=== PATIENT | male | born 1940 | race Caucasian/White ===

== ENCOUNTER 2017-10-13 10:52 | Inpatient (IN) | payer MEDICARE, OTHER ==
[~2017-10-13] VITALS: Ht 177.8 cm; Wt 84.2 kg
[2017-10-13] MEDS ORDERED: normal saline 1000ML IV soln IV ONE (11:00)
[2017-10-13] MEDS ORDERED: metroNIDAZOLE-Flagyl 500mg/NS 100 ML IV STA (11:15)
[2017-10-13] MEDS ORDERED: piperacillin/tazo 3.375gm/50ml 50 ML IV ONE (11:15)
[2017-10-13 11:36] LABS: BASOPHILS % (AUTO) 0.1 % (0-1); EOSINOPHILS # (AUTO) 0.1 X10'3 (0-0.9); EOSINOPHILS % (AUTO) 0.8 % (0-6); HEMATOCRIT 41.2 % (42.0-52.0); LYMPHOCYTES # (AUTO) 1.6 X10'3 (1.1-4.8); LYMPHOCYTES % (AUTO) 8.5 % (21-51); MEAN CORPUSCULAR HEMOGLOBIN 28.2 PG (27.0-31.0); MEAN CORPUSCULAR HGB CONC 33.9 % (33.0-36.5); MEAN CORPUSCULAR VOLUME 83.1 FL (78-98); MEAN PLATELET VOLUME 7.4 FL (7.4-10.4); MONOCYTES # (AUTO) 1.2 X10'3 (0-0.9); MONOCYTES % (AUTO) 6.6 % (2-12); NEUTROPHILS # (AUTO) 15.3 X10'3 (1.8-7.7); PLATELET COUNT 402 X10'3 (140-440); RED BLOOD COUNT 4.96 X10'6 (4.70-6.10); WHITE BLOOD COUNT 18.2 X10'3 (4.5-11.0)
[2017-10-13 11:44] LABS: PROTHROMBIN TIME 10.8 SECONDS (9.0-12.0)
[2017-10-13 12:01] LABS: ALANINE AMINOTRANSFERASE 68 U/L (12-78); ALBUMIN 2.7 G/DL (3.4-5.0); ALBUMIN/GLOBULIN RATIO 0.6 (1.1-1.5); ALKALINE PHOSPHATASE 109 IU/L (46-116); ANION GAP 14 (8-16); ASPARTATE AMINO TRANSFERASE 34 U/L (10-37); BILIRUBIN,TOTAL 0.5 MG/DL (0.1-1.0); BLOOD UREA NITROGEN 36 MG/DL (7-18); CALCIUM 8.9 MG/DL (8.5-10.1); CHLORIDE 100 MMOL/L (99-107); CREATININE 2.12 MG/DL (0.60-1.10); GLUCOSE 129 MG/DL (70-104); POTASSIUM 3.8 MMOL/L (3.5-5.1); SODIUM 137 MMOL/L (135-145); TOTAL CARBON DIOXIDE 22.7 MMOL/L (24-32); TOTAL PROTEIN 7.6 G/DL (6.4-8.2); eGFR 30 ML/MIN
[2017-10-13] MEDS ORDERED: acetaminophen 325mg tablet PO PRN (13:05)
[2017-10-13] MEDS ORDERED: magnesium hydroxide 30ml (MOM) UD suspension PO PRN (13:05)
[2017-10-13 13:33] LABS: CLARITY,URINE TURBID (Clear); COLOR,URINE DARK YELLOW (Yellow); GLUCOSE, URINE NEGATIVE (Neg); KETONES,URINE TRACE mg/dl (Neg); LEUKOCYTE ESTERASE ,URINE MODERATE (Neg); NITRITES, URINE POSITIVE (Neg); OCCULT BLOOD,URINE LARGE (Neg); PROTEIN,URINE 100 mg/dl (Neg); UA COLLECTION TYPE CLN CATCH MIDSTREAM
[2017-10-13 13:36] LABS: WBC,URINE TNTC /HPF (0-4)
[2017-10-13 13:38] LABS: BACTERIA,URINE 4+ /HPF (Neg)
[2017-10-13 13:39] LABS: SQUAMOUS EPITHELIAL CELL,UR NONE SEEN /LPF (FEW)
[2017-10-13] MEDS: sodium chloride 0.45% 1,000 ML IV SCH ×2 (14:52→23:26)
[2017-10-13] MEDS ORDERED: metroNIDAZOLE-Flagyl 500mg/NS 100 ML IV SCH (16:00)
[2017-10-13] MEDS ORDERED: piperacillin/tazo 3.375gm/50ml 50 ML IV SCH ×3 (16:00→16:29)
[2017-10-13] MEDS: metroNIDAZOLE-Flagyl 500mg/NS 100 ML IV SCH (19:04)
[2017-10-13] MEDS: piperacillin/tazo 3.375gm/50ml 50 ML IV SCH (20:44)
[2017-10-13 23:10] VITALS: BP 96/61
[2017-10-14] VITALS (10 sets, daily range): BP systolic 87–132; BP diastolic 49–83
[2017-10-14] MEDS: metroNIDAZOLE-Flagyl 500mg/NS 100 ML IV SCH ×3 (03:33→19:33)
[2017-10-14] MEDS: piperacillin/tazo 3.375gm/50ml 50 ML IV SCH ×3 (04:38→20:46)
[2017-10-14 05:11] LABS: BASOPHILS # (AUTO) 0.1 X10'3 (0-0.2); BASOPHILS % (AUTO) 0.3 % (0-1); EOSINOPHILS # (AUTO) 0.5 X10'3 (0-0.9); EOSINOPHILS % (AUTO) 2.9 % (0-6); HEMATOCRIT 35.8 % (42.0-52.0); HEMOGLOBIN 12.1 g/dl (14.0-17.9); LYMPHOCYTES # (AUTO) 1.5 X10'3 (1.1-4.8); LYMPHOCYTES % (AUTO) 9.6 % (21-51); MEAN CORPUSCULAR HEMOGLOBIN 28.3 PG (27.0-31.0); MEAN CORPUSCULAR HGB CONC 33.7 % (33.0-36.5); MEAN CORPUSCULAR VOLUME 83.9 FL (78-98); MEAN PLATELET VOLUME 7.3 FL (7.4-10.4); MONOCYTES # (AUTO) 1.2 X10'3 (0-0.9); MONOCYTES % (AUTO) 7.4 % (2-12); NEUTROPHILS # (AUTO) 12.5 X10'3 (1.8-7.7); NEUTROPHILS % (AUTO) 79.8 % (42-75); PLATELET COUNT 385 X10'3 (140-440); RED BLOOD COUNT 4.27 X10'6 (4.70-6.10); RED CELL DISTRIBUTION WIDTH 14.6 % (11.5-14.5); WHITE BLOOD COUNT 15.6 X10'3 (4.5-11.0)
[2017-10-14 05:26] LABS: ANION GAP 13 (8-16); BLOOD UREA NITROGEN 26 MG/DL (7-18); BUN/CREATININE RATIO 18.8 (5.4-32.0); CALCIUM 8.1 MG/DL (8.5-10.1); CHLORIDE 103 MMOL/L (99-107); CREATININE 1.38 MG/DL (0.60-1.10); GLUCOSE 106 MG/DL (70-104); POTASSIUM 4.1 MMOL/L (3.5-5.1); SODIUM 136 MMOL/L (135-145); eGFR 50 ML/MIN
[2017-10-14] MEDS ORDERED: enoxaparin 40mg/0.4ml syringe SUBCUT SCH (08:00)
[2017-10-14] MEDS ORDERED: regadenoson 0.4mg/5ml syringe IV ONE (09:25)
[2017-10-14] MEDS ORDERED: DIPYRIDAMOLE IV ONE (10:00)
[2017-10-14] MEDS ORDERED: WATER IV ONE (10:00)
[2017-10-14] MEDS ORDERED: metoprolol tartrate 1mg/ml inj IV PRN (10:00)
[2017-10-14] MEDS ORDERED: DEXTROSE 5% IV ONE (10:00)
[2017-10-14] MEDS ORDERED: aminophylline 250mg/10ml inj. IV PRN (10:00)
[2017-10-14] MEDS: sodium chloride 0.45% 1,000 ML IV SCH ×2 (10:52→19:01)
[2017-10-15] VITALS (13 sets, daily range): BP systolic 81–140; BP diastolic 52–78
[2017-10-15] MEDS: sodium chloride 0.45% 1,000 ML IV SCH ×3 (00:32→19:57)
[2017-10-15] MEDS: metroNIDAZOLE-Flagyl 500mg/NS 100 ML IV SCH ×3 (03:07→19:57)
[2017-10-15] MEDS: piperacillin/tazo 3.375gm/50ml 50 ML IV SCH ×3 (04:15→20:12)
[2017-10-15 05:23] LABS: BASOPHILS % (AUTO) 0.2 % (0-1); EOSINOPHILS # (AUTO) 0.3 X10'3 (0-0.9); EOSINOPHILS % (AUTO) 2.9 % (0-6); HEMATOCRIT 36.6 % (42.0-52.0); HEMOGLOBIN 12.3 g/dl (14.0-17.9); LYMPHOCYTES # (AUTO) 1.6 X10'3 (1.1-4.8); LYMPHOCYTES % (AUTO) 16.3 % (21-51); MEAN CORPUSCULAR HEMOGLOBIN 28.3 PG (27.0-31.0); MEAN CORPUSCULAR HGB CONC 33.6 % (33.0-36.5); MEAN CORPUSCULAR VOLUME 84.2 FL (78-98); MEAN PLATELET VOLUME 7.2 FL (7.4-10.4); MONOCYTES # (AUTO) 0.9 X10'3 (0-0.9); MONOCYTES % (AUTO) 8.8 % (2-12); NEUTROPHILS # (AUTO) 7.1 X10'3 (1.8-7.7); NEUTROPHILS % (AUTO) 71.8 % (42-75); PLATELET COUNT 397 X10'3 (140-440); RED BLOOD COUNT 4.35 X10'6 (4.70-6.10); RED CELL DISTRIBUTION WIDTH 14.8 % (11.5-14.5); WHITE BLOOD COUNT 9.9 X10'3 (4.5-11.0)
[2017-10-15 06:05] LABS: ANION GAP 11 (8-16); BLOOD UREA NITROGEN 20 MG/DL (7-18); BUN/CREATININE RATIO 13.7 (5.4-32.0); CALCIUM 8.2 MG/DL (8.5-10.1); CHLORIDE 105 MMOL/L (99-107); CREATININE 1.46 MG/DL (0.60-1.10); GLUCOSE 112 MG/DL (70-104); POTASSIUM 4.1 MMOL/L (3.5-5.1); SODIUM 139 MMOL/L (135-145); TOTAL CARBON DIOXIDE 23.2 MMOL/L (24-32); eGFR 47 ML/MIN
[2017-10-15] MEDS: enoxaparin 40mg/0.4ml syringe SUBCUT SCH (08:00)
[2017-10-15] MEDS ORDERED: BUPIVAcaine/PF 2.5 mg/ml (0.25%) 30ml vial ONE (12:04)
[2017-10-15] MEDS ORDERED: iohexol 300 MG/1 ML 50ml polymer ONE (12:04)
[2017-10-15] MEDS ORDERED: LIDOcaine 2% (20mg/ml) 5ml vial ONE (12:08)
[2017-10-15] MEDS ORDERED: propofol inj 20 ML IV ONE (12:08)
[2017-10-15] MEDS ORDERED: rocuronium 10mg/ml inj IV ONE ×2 (12:10→13:36)
[2017-10-15] MEDS ORDERED: fentaNYL /PF 50mcg/ml 5ml ampule ONE (12:11)
[2017-10-15] MEDS ORDERED: midazolam 2 mg/2 ml injection ONE (12:11)
[2017-10-15] MEDS ORDERED: sevoflurane 250ml liquid IH ONE (12:59)
[2017-10-15] MEDS ORDERED: ringers solution, lacted 1,000 ML IV SCH (14:09)
[2017-10-15] MEDS ORDERED: fentaNYL/PF 50MCG/1 ML 2ML syringe IV PRN ×2 (14:10)
[2017-10-15] MEDS ORDERED: ondansetron/PF 4mg/2ml inj IV PRN (14:10)
[2017-10-15] MEDS ORDERED: HYDROmorphone inj. 0.5 MG/0.5 ML DISP.SYRIN IV PRN (14:10)
[2017-10-15] MEDS ORDERED: neostigmine methylsulfate 1 MG/ML 10ml vial ONE (15:16)
[2017-10-15] MEDS ORDERED: glycopyrrolate 0.2mg/ml inj ONE (15:16)
[2017-10-15] MEDS ORDERED: ondansetron/PF 4mg/2ml inj ONE (15:27)
[2017-10-15] MEDS ORDERED: fentaNYL/PF 50MCG/1 ML 2ML syringe ONE ×2 (15:35→15:39)
[2017-10-15] MEDS ORDERED: metoprolol tartrate 1mg/ml inj IV ONE (15:40)
[2017-10-15] MEDS ORDERED: albuterol 2.5 MG/3 ML nebule NEB ONE (16:40)
[2017-10-15] MEDS ORDERED: CADD PCA waste documentation MC PRN (16:55)
[2017-10-15] MEDS ORDERED: naloxone 0.4 mg/ml inj IV PRN (16:55)
[2017-10-15] MEDS: HYDROmorphone/NS 1 mg/ml CADD 50 ML IV SCH ×3 (17:07→23:00)
[2017-10-15 18:32] LABS: BASOPHILS % (AUTO) 0.1 % (0-1); EOSINOPHILS % (AUTO) 0.1 % (0-6); HEMATOCRIT 34.6 % (42.0-52.0); HEMOGLOBIN 11.4 g/dl (14.0-17.9); LYMPHOCYTES # (AUTO) 0.7 X10'3 (1.1-4.8); LYMPHOCYTES % (AUTO) 9.2 % (21-51); MEAN CORPUSCULAR HGB CONC 33.1 % (33.0-36.5); MEAN CORPUSCULAR VOLUME 84.5 FL (78-98); MONOCYTES # (AUTO) 0.2 X10'3 (0-0.9); MONOCYTES % (AUTO) 2.3 % (2-12); NEUTROPHILS # (AUTO) 6.8 X10'3 (1.8-7.7); NEUTROPHILS % (AUTO) 88.3 % (42-75); PLATELET COUNT 384 X10'3 (140-440); RED BLOOD COUNT 4.09 X10'6 (4.70-6.10); RED CELL DISTRIBUTION WIDTH 14.7 % (11.5-14.5); WHITE BLOOD COUNT 7.8 X10'3 (4.5-11.0)
[2017-10-15] MEDS ORDERED: DOXA4TAB3 PO (18:53)
[2017-10-15] MEDS ORDERED: PANT-47 PO (18:53)
[2017-10-15] MEDS ORDERED: MELO-102 PO (18:53)
[2017-10-15] MEDS ORDERED: CLOP75TA35 PO (18:55)
[2017-10-15 22:00] LABS: ALANINE AMINOTRANSFERASE 29 U/L (12-78); ALBUMIN 1.9 G/DL (3.4-5.0); ALBUMIN/GLOBULIN RATIO 0.5 (1.1-1.5); ALKALINE PHOSPHATASE 63 IU/L (46-116); ANION GAP 10 (8-16); ASPARTATE AMINO TRANSFERASE 17 U/L (10-37); BILIRUBIN,TOTAL 0.6 MG/DL (0.1-1.0); BLOOD UREA NITROGEN 19 MG/DL (7-18); BUN/CREATININE RATIO 11.9 (5.4-32.0); CALCIUM 7.7 MG/DL (8.5-10.1); CHLORIDE 105 MMOL/L (99-107); CREATININE 1.59 MG/DL (0.60-1.10); GLUCOSE 129 MG/DL (70-104); POTASSIUM 4.2 MMOL/L (3.5-5.1); SODIUM 140 MMOL/L (135-145); TOTAL CARBON DIOXIDE 24.9 MMOL/L (24-32); TOTAL PROTEIN 5.6 G/DL (6.4-8.2); eGFR 42 ML/MIN
[2017-10-15] MEDS ORDERED: albumin (Human) 5% 250 ML IV solution IV STA (22:33)
[2017-10-16] VITALS (24 sets, daily range): BP systolic 77–104; BP diastolic 52–65
[2017-10-16] MEDS: HYDROmorphone/NS 1 mg/ml CADD 50 ML IV SCH ×11 (01:00→23:00)
[2017-10-16] MEDS: metroNIDAZOLE-Flagyl 500mg/NS 100 ML IV SCH (03:00)
[2017-10-16] MEDS: piperacillin/tazo 3.375gm/50ml 50 ML IV SCH (03:53)
[2017-10-16 05:09] LABS: BASOPHILS % (AUTO) 0.1 % (0-1); EOSINOPHILS # (AUTO) 0.1 X10'3 (0-0.9); EOSINOPHILS % (AUTO) 1.1 % (0-6); HEMATOCRIT 31.6 % (42.0-52.0); HEMOGLOBIN 10.6 g/dl (14.0-17.9); LYMPHOCYTES # (AUTO) 0.9 X10'3 (1.1-4.8); LYMPHOCYTES % (AUTO) 7.1 % (21-51); MEAN CORPUSCULAR HEMOGLOBIN 28.1 PG (27.0-31.0); MEAN CORPUSCULAR HGB CONC 33.6 % (33.0-36.5); MEAN CORPUSCULAR VOLUME 83.5 FL (78-98); MEAN PLATELET VOLUME 6.9 FL (7.4-10.4); MONOCYTES # (AUTO) 0.6 X10'3 (0-0.9); MONOCYTES % (AUTO) 5.3 % (2-12); NEUTROPHILS # (AUTO) 10.4 X10'3 (1.8-7.7); NEUTROPHILS % (AUTO) 86.4 % (42-75); PLATELET COUNT 369 X10'3 (140-440); RED BLOOD COUNT 3.78 X10'6 (4.70-6.10)
[2017-10-16 05:23] LABS: ALBUMIN 2.2 G/DL (3.4-5.0); ANION GAP 11 (8-16); BLOOD UREA NITROGEN 21 MG/DL (7-18); BUN/CREATININE RATIO 11.1 (5.4-32.0); CALCIUM 7.6 MG/DL (8.5-10.1); CHLORIDE 104 MMOL/L (99-107); GLUCOSE 127 MG/DL (70-104); POTASSIUM 4.4 MMOL/L (3.5-5.1); SODIUM 138 MMOL/L (135-145); eGFR 34 ML/MIN
[2017-10-16] MEDS: sodium chloride 0.45% 1,000 ML IV SCH ×2 (05:33→23:33)
[2017-10-16] MEDS: enoxaparin 40mg/0.4ml syringe SUBCUT SCH (08:30)
[2017-10-16] MEDS ORDERED: albumin (human) 25% 100 ML IV solution IV SCH (13:00)
[2017-10-16] MEDS: meropenem inj 500 MG in normal saline 100ml IV soln 100 ML IV SCH ×2 (16:23→23:33)
[2017-10-16] MEDS: mag hydrox/Alum hydrox/simeth 30ml oral suspension PO PRN (16:28)
[2017-10-17] VITALS (22 sets, daily range): BP systolic 92–120; BP diastolic 56–83
[2017-10-17] MEDS: HYDROmorphone/NS 1 mg/ml CADD 50 ML IV SCH ×12 (01:00→23:00)
[2017-10-17 03:35] LABS: BASOPHILS # (AUTO) 0.1 X10'3 (0-0.2); BASOPHILS % (AUTO) 0.8 % (0-1); EOSINOPHILS # (AUTO) 0.1 X10'3 (0-0.9); EOSINOPHILS % (AUTO) 0.8 % (0-6); HEMATOCRIT 30.9 % (42.0-52.0); HEMOGLOBIN 10.5 g/dl (14.0-17.9); LYMPHOCYTES # (AUTO) 0.9 X10'3 (1.1-4.8); LYMPHOCYTES % (AUTO) 5.9 % (21-51); MEAN CORPUSCULAR HEMOGLOBIN 28.3 PG (27.0-31.0); MEAN CORPUSCULAR HGB CONC 33.9 % (33.0-36.5); MEAN CORPUSCULAR VOLUME 83.3 FL (78-98); MEAN PLATELET VOLUME 6.9 FL (7.4-10.4); MONOCYTES # (AUTO) 0.8 X10'3 (0-0.9); MONOCYTES % (AUTO) 5.1 % (2-12); NEUTROPHILS # (AUTO) 13.5 X10'3 (1.8-7.7); NEUTROPHILS % (AUTO) 87.4 % (42-75); PLATELET COUNT 382 X10'3 (140-440); RED BLOOD COUNT 3.71 X10'6 (4.70-6.10); RED CELL DISTRIBUTION WIDTH 14.8 % (11.5-14.5); WHITE BLOOD COUNT 15.4 X10'3 (4.5-11.0)
[2017-10-17 03:41] LABS: ANION GAP 12 (8-16); BLOOD UREA NITROGEN 23 MG/DL (7-18); BUN/CREATININE RATIO 12.3 (5.4-32.0); CALCIUM 7.8 MG/DL (8.5-10.1); CHLORIDE 101 MMOL/L (99-107); CREATININE 1.87 MG/DL (0.60-1.10); GLUCOSE 125 MG/DL (70-104); POTASSIUM 4.1 MMOL/L (3.5-5.1); SODIUM 135 MMOL/L (135-145); TOTAL CARBON DIOXIDE 22.1 MMOL/L (24-32); eGFR 35 ML/MIN
[2017-10-17] MEDS: ondansetron/PF 4mg/2ml inj IV PRN (07:48)
[2017-10-17] MEDS: enoxaparin 40mg/0.4ml syringe SUBCUT SCH (07:48)
[2017-10-17] MEDS: pantoprazole 40mg Tablet.DR PO SCH (07:48)
[2017-10-17] MEDS: meropenem inj 500 MG in normal saline 100ml IV soln 100 ML IV SCH (08:58)
[2017-10-17] MEDS: sodium chloride 0.45% 1,000 ML IV SCH ×3 (08:59→21:32)
[2017-10-17] MEDS: MEROPENEM IV SCH (17:10)
[2017-10-17] MEDS: DEXTROSE 5% IV SCH (17:10)
[2017-10-17] MEDS: WATER IV SCH (17:10)
[2017-10-18] VITALS (24 sets, daily range): BP systolic 83–123; BP diastolic 53–96
[2017-10-18] MEDS: DEXTROSE 5% IV SCH ×4 (00:13→23:29)
[2017-10-18] MEDS: MEROPENEM IV SCH ×4 (00:13→23:29)
[2017-10-18] MEDS: WATER IV SCH ×4 (00:13→23:29)
[2017-10-18] MEDS: HYDROmorphone/NS 1 mg/ml CADD 50 ML IV SCH ×12 (01:00→23:00)
[2017-10-18] MEDS: mag hydrox/Alum hydrox/simeth 30ml oral suspension PO PRN (02:25)
[2017-10-18 03:33] LABS: BASOPHILS # (AUTO) 0.1 X10'3 (0-0.2); BASOPHILS % (AUTO) 0.8 % (0-1); EOSINOPHILS # (AUTO) 0.3 X10'3 (0-0.9); EOSINOPHILS % (AUTO) 2.1 % (0-6); HEMATOCRIT 31.6 % (42.0-52.0); HEMOGLOBIN 10.6 g/dl (14.0-17.9); LYMPHOCYTES # (AUTO) 1.4 X10'3 (1.1-4.8); MEAN CORPUSCULAR HEMOGLOBIN 28.1 PG (27.0-31.0); MEAN CORPUSCULAR HGB CONC 33.5 % (33.0-36.5); MEAN CORPUSCULAR VOLUME 84.1 FL (78-98); MONOCYTES # (AUTO) 0.9 X10'3 (0-0.9); MONOCYTES % (AUTO) 5.8 % (2-12); NEUTROPHILS # (AUTO) 12.7 X10'3 (1.8-7.7); NEUTROPHILS % (AUTO) 82.3 % (42-75); PLATELET COUNT 396 X10'3 (140-440); RED BLOOD COUNT 3.76 X10'6 (4.70-6.10); RED CELL DISTRIBUTION WIDTH 14.8 % (11.5-14.5); WHITE BLOOD COUNT 15.4 X10'3 (4.5-11.0)
[2017-10-18 03:50] LABS: ALANINE AMINOTRANSFERASE 20 U/L (12-78); ALBUMIN 1.9 G/DL (3.4-5.0); ALBUMIN/GLOBULIN RATIO 0.5 (1.1-1.5); ALKALINE PHOSPHATASE 71 IU/L (46-116); ANION GAP 9 (8-16); ASPARTATE AMINO TRANSFERASE 17 U/L (10-37); BILIRUBIN,TOTAL 0.4 MG/DL (0.1-1.0); BLOOD UREA NITROGEN 23 MG/DL (7-18); BUN/CREATININE RATIO 15.6 (5.4-32.0); CHLORIDE 100 MMOL/L (99-107); CREATININE 1.47 MG/DL (0.60-1.10); GLUCOSE 127 MG/DL (70-104); MAGNESIUM 1.7 MG/DL (1.5-2.4); PHOSPHORUS 2.3 MG/DL (2.3-4.5); POTASSIUM 3.9 MMOL/L (3.5-5.1); SODIUM 133 MMOL/L (135-145); TOTAL CARBON DIOXIDE 24.3 MMOL/L (24-32); TOTAL PROTEIN 5.8 G/DL (6.4-8.2); eGFR 46 ML/MIN
[2017-10-18] MEDS: ondansetron/PF 4mg/2ml inj IV PRN (04:57)
[2017-10-18] MEDS: pantoprazole 40mg Tablet.DR PO SCH (08:35)
[2017-10-18] MEDS: enoxaparin 40mg/0.4ml syringe SUBCUT SCH (08:36)
[2017-10-18] MEDS: sodium chloride 0.45% 1,000 ML IV SCH (10:36)
[2017-10-18] MEDS ORDERED: fentaNYL/PF 50MCG/1 ML 2ML syringe ONE ×3 (11:07→12:46)
[2017-10-18] MEDS ORDERED: LIDOcaine 2% (20mg/ml) 5ml vial ONE (11:08)
[2017-10-18] MEDS ORDERED: propofol inj 20 ML IV ONE (11:08)
[2017-10-18] MEDS ORDERED: rocuronium 10mg/ml inj IV ONE (11:09)
[2017-10-18] MEDS ORDERED: sevoflurane 250ml liquid IH ONE (11:43)
[2017-10-18] MEDS ORDERED: BUPIVAcaine/PF 2.5 mg/ml (0.25%) 30ml vial ONE (12:04)
[2017-10-18] MEDS ORDERED: ceFAZolin 1000mg inj ONE ×2 (12:04→12:20)
[2017-10-18] MEDS ORDERED: neostigmine methylsulfate 1 MG/ML 10ml vial ONE (12:24)
[2017-10-18] MEDS ORDERED: glycopyrrolate 0.2mg/ml inj ONE (12:24)
[2017-10-18] MEDS ORDERED: ondansetron/PF 4mg/2ml inj ONE (12:24)
[2017-10-18] MEDS ORDERED: metoprolol tartrate 1mg/ml inj IV ONE (12:37)
[2017-10-18] MEDS: LACTOSE-FREE FOOD (BOOST BREEZE) 237ML PO SCH (13:00)
[2017-10-18] MEDS: normal saline 1000ml 1,000 ML IV SCH ×2 (14:33→21:39)
[2017-10-19] VITALS (24 sets, daily range): BP systolic 85–131; BP diastolic 60–79
[2017-10-19] MEDS: HYDROmorphone/NS 1 mg/ml CADD 50 ML IV SCH ×12 (01:00→23:00)
[2017-10-19 04:30] LABS: BASOPHILS # (AUTO) 0.1 X10'3 (0-0.2); BASOPHILS % (AUTO) 0.7 % (0-1); EOSINOPHILS # (AUTO) 0.1 X10'3 (0-0.9); EOSINOPHILS % (AUTO) 1.2 % (0-6); HEMATOCRIT 30.6 % (42.0-52.0); HEMOGLOBIN 10.6 g/dl (14.0-17.9); LYMPHOCYTES # (AUTO) 1.2 X10'3 (1.1-4.8); LYMPHOCYTES % (AUTO) 9.8 % (21-51); MEAN CORPUSCULAR HGB CONC 34.7 % (33.0-36.5); MEAN CORPUSCULAR VOLUME 83.8 FL (78-98); MEAN PLATELET VOLUME 7.2 FL (7.4-10.4); MONOCYTES # (AUTO) 0.8 X10'3 (0-0.9); MONOCYTES % (AUTO) 6.7 % (2-12); NEUTROPHILS # (AUTO) 10.1 X10'3 (1.8-7.7); NEUTROPHILS % (AUTO) 81.6 % (42-75); PLATELET COUNT 422 X10'3 (140-440); RED BLOOD COUNT 3.65 X10'6 (4.70-6.10); RED CELL DISTRIBUTION WIDTH 13.9 % (11.5-14.5); WHITE BLOOD COUNT 12.3 X10'3 (4.5-11.0)
[2017-10-19 04:35] LABS: ALANINE AMINOTRANSFERASE 20 U/L (12-78); ALBUMIN 1.6 G/DL (3.4-5.0); ALBUMIN/GLOBULIN RATIO 0.4 (1.1-1.5); ALKALINE PHOSPHATASE 55 IU/L (46-116); ANION GAP 8 (8-16); ASPARTATE AMINO TRANSFERASE 21 U/L (10-37); BILIRUBIN,TOTAL 0.6 MG/DL (0.1-1.0); BLOOD UREA NITROGEN 20 MG/DL (7-18); BUN/CREATININE RATIO 14.5 (5.4-32.0); CALCIUM 7.4 MG/DL (8.5-10.1); CHLORIDE 102 MMOL/L (99-107); CREATININE 1.38 MG/DL (0.60-1.10); GLUCOSE 127 MG/DL (70-104); MAGNESIUM 1.6 MG/DL (1.5-2.4); PHOSPHORUS 2.3 MG/DL (2.3-4.5); POTASSIUM 3.9 MMOL/L (3.5-5.1); SODIUM 135 MMOL/L (135-145); TOTAL CARBON DIOXIDE 24.9 MMOL/L (24-32); TOTAL PROTEIN 5.4 G/DL (6.4-8.2); eGFR 50 ML/MIN
[2017-10-19] MEDS: pantoprazole 40mg Tablet.DR PO SCH (07:43)
[2017-10-19] MEDS: enoxaparin 40mg/0.4ml syringe SUBCUT SCH (07:43)
[2017-10-19] MEDS: LACTOSE-FREE FOOD (BOOST BREEZE) 237ML PO SCH ×3 (08:00→18:00)
[2017-10-19] MEDS ORDERED: meropenem inj 500 MG in normal saline 100ml IV soln 100 ML IV SCH (08:00)
[2017-10-19] MEDS ORDERED: MEROPENEM IV SCH (16:00)
[2017-10-19] MEDS ORDERED: WATER IV SCH (16:00)
[2017-10-19] MEDS ORDERED: DEXTROSE 5% IV SCH (16:00)
[2017-10-19] MEDS: meropenem inj 1 GM in dextrose 5%-water 100 ML IV SCH (17:28)
[2017-10-19] MEDS: ondansetron/PF 4mg/2ml inj IV PRN (17:32)
[2017-10-19 19:12] LABS: COLOR,URINE Yellow (Yellow); GLUCOSE, URINE Negative (Neg); KETONES,URINE 15 mg/dl (Neg); LEUKOCYTE ESTERASE ,URINE Trace (Neg); NITRITES, URINE Negative (Neg); OCCULT BLOOD,URINE Small (Neg); PH,URINE 5.5 (4.8-8.0); PROTEIN,URINE 30 mg/dl (Neg)
[2017-10-19 19:24] LABS: CLARITY,URINE Slightly Cloudy (Clear); UA COLLECTION TYPE FOLEY CATH
[2017-10-19 19:31] LABS: WBC,URINE 0-4 /HPF (0-4)
[2017-10-19 19:32] LABS: BACTERIA,URINE NONE SEEN /HPF (Neg); RBC,URINE 0-2 /HPF (0-2); SQUAMOUS EPITHELIAL CELL,UR FEW /LPF (FEW)
[2017-10-19 19:35] LABS: YEAST MANY /HPF (NEGATIVE)
[2017-10-19] MEDS: normal saline 1000ml 1,000 ML IV SCH ×2 (19:36→20:20)
[2017-10-19] MEDS ORDERED: proCHLORperazine 10 MG/2 ml inj IV ONE (22:00)
[2017-10-20] VITALS (21 sets, daily range): BP systolic 95–138; BP diastolic 57–82
[2017-10-20] MEDS: meropenem inj 1 GM in dextrose 5%-water 100 ML IV SCH ×3 (00:48→16:16)
[2017-10-20] MEDS: ondansetron/PF 4mg/2ml inj IV PRN ×2 (00:59→19:50)
[2017-10-20] MEDS: HYDROmorphone/NS 1 mg/ml CADD 50 ML IV SCH ×12 (01:00→23:00)
[2017-10-20 05:26] LABS: BASOPHILS % (AUTO) 0.2 % (0-1); EOSINOPHILS # (AUTO) 0.4 X10'3 (0-0.9); EOSINOPHILS % (AUTO) 3.3 % (0-6); HEMATOCRIT 31.3 % (42.0-52.0); HEMOGLOBIN 10.5 g/dl (14.0-17.9); LYMPHOCYTES # (AUTO) 1.3 X10'3 (1.1-4.8); LYMPHOCYTES % (AUTO) 11.8 % (21-51); MEAN CORPUSCULAR HGB CONC 33.5 % (33.0-36.5); MEAN CORPUSCULAR VOLUME 83.7 FL (78-98); MEAN PLATELET VOLUME 6.9 FL (7.4-10.4); MONOCYTES % (AUTO) 8.6 % (2-12); NEUTROPHILS # (AUTO) 8.7 X10'3 (1.8-7.7); NEUTROPHILS % (AUTO) 76.1 % (42-75); PLATELET COUNT 437 X10'3 (140-440); RED BLOOD COUNT 3.73 X10'6 (4.70-6.10); RED CELL DISTRIBUTION WIDTH 14.6 % (11.5-14.5); WHITE BLOOD COUNT 11.4 X10'3 (4.5-11.0)
[2017-10-20 05:45] LABS: ALANINE AMINOTRANSFERASE 26 U/L (12-78); ALBUMIN 1.6 G/DL (3.4-5.0); ALBUMIN/GLOBULIN RATIO 0.4 (1.1-1.5); ALKALINE PHOSPHATASE 69 IU/L (46-116); ANION GAP 9 (8-16); ASPARTATE AMINO TRANSFERASE 30 U/L (10-37); BILIRUBIN,TOTAL 0.6 MG/DL (0.1-1.0); BLOOD UREA NITROGEN 20 MG/DL (7-18); BUN/CREATININE RATIO 16.7 (5.4-32.0); CALCIUM 7.8 MG/DL (8.5-10.1); CHLORIDE 103 MMOL/L (99-107); GLUCOSE 128 MG/DL (70-104); MAGNESIUM 1.9 MG/DL (1.5-2.4); PHOSPHORUS 2.4 MG/DL (2.3-4.5); SODIUM 138 MMOL/L (135-145); TOTAL CARBON DIOXIDE 25.9 MMOL/L (24-32); TOTAL PROTEIN 5.6 G/DL (6.4-8.2); eGFR 58 ML/MIN
[2017-10-20] MEDS: normal saline 1000ml 1,000 ML IV SCH ×2 (05:48→16:20)
[2017-10-20] MEDS: LACTOSE-FREE FOOD (BOOST BREEZE) 237ML PO SCH ×3 (08:00→19:00)
[2017-10-20] MEDS: enoxaparin 40mg/0.4ml syringe SUBCUT SCH (08:21)
[2017-10-20] MEDS: pantoprazole 40mg Tablet.DR PO SCH (08:21)
[2017-10-21] VITALS: BP 122/74
[2017-10-21] MEDS: meropenem inj 1 GM in dextrose 5%-water 100 ML IV SCH ×3 (00:26→16:25)
[2017-10-21 01:00] VITALS: BP 124/65
[2017-10-21] MEDS: normal saline 1000ml 1,000 ML IV SCH ×3 (02:20→22:57)
[2017-10-21] MEDS: HYDROmorphone/NS 1 mg/ml CADD 50 ML IV SCH (03:00)
[2017-10-21] MEDS: mag hydrox/Alum hydrox/simeth 30ml oral suspension PO PRN ×2 (03:01→10:32)
[2017-10-21] MEDS ORDERED: HYDROmorphone 1 mg/ml syringe IM ONE (03:05)
[2017-10-21] MEDS ORDERED: HYDROmorphone inj. 0.5 MG/0.5 ML DISP.SYRIN IV PRN (03:05)
[2017-10-21] MEDS ORDERED: HYDROmorphone 1 mg/ml syringe IV PRN (03:05)
[2017-10-21] MEDS ORDERED: HYDROmorphone inj. 0.5 MG/0.5 ML DISP.SYRIN ONE ×4 (03:25→22:56)
[2017-10-21] MEDS: ondansetron/PF 4mg/2ml inj IV PRN ×2 (05:33→13:34)
[2017-10-21 07:30] VITALS: BP 126/77
[2017-10-21] MEDS: LACTOSE-FREE FOOD (BOOST BREEZE) 237ML PO SCH ×3 (08:00→18:00)
[2017-10-21] MEDS: pantoprazole 40mg Tablet.DR PO SCH (08:02)
[2017-10-21] MEDS: enoxaparin 40mg/0.4ml syringe SUBCUT SCH (08:03)
[2017-10-21 08:22] LABS: BASOPHILS % (AUTO) 0 % (0-1); EOSINOPHILS # (AUTO) 0.1 X10'3 (0-0.9); HEMATOCRIT 31.3 % (42.0-52.0); HEMOGLOBIN 10.7 g/dl (14.0-17.9); LYMPHOCYTES # (AUTO) 1.1 X10'3 (1.1-4.8); LYMPHOCYTES % (AUTO) 7.9 % (21-51); MEAN CORPUSCULAR HEMOGLOBIN 28.2 PG (27.0-31.0); MEAN CORPUSCULAR HGB CONC 34.2 % (33.0-36.5); MEAN CORPUSCULAR VOLUME 82.5 FL (78-98); MEAN PLATELET VOLUME 7.3 FL (7.4-10.4); MONOCYTES # (AUTO) 0.9 X10'3 (0-0.9); MONOCYTES % (AUTO) 6.7 % (2-12); NEUTROPHILS # (AUTO) 11.2 X10'3 (1.8-7.7); NEUTROPHILS % (AUTO) 84.4 % (42-75); PLATELET COUNT 495 X10'3 (140-440); WHITE BLOOD COUNT 13.3 X10'3 (4.5-11.0)
[2017-10-21 08:41] LABS: ALANINE AMINOTRANSFERASE 45 U/L (12-78); ALBUMIN 1.7 G/DL (3.4-5.0); ALBUMIN/GLOBULIN RATIO 0.4 (1.1-1.5); ALKALINE PHOSPHATASE 106 IU/L (46-116); ANION GAP 8 (8-16); ASPARTATE AMINO TRANSFERASE 55 U/L (10-37); BILIRUBIN,TOTAL 0.5 MG/DL (0.1-1.0); BLOOD UREA NITROGEN 17 MG/DL (7-18); BUN/CREATININE RATIO 15.3 (5.4-32.0); CALCIUM 7.6 MG/DL (8.5-10.1); CHLORIDE 103 MMOL/L (99-107); CREATININE 1.11 MG/DL (0.60-1.10); GLUCOSE 131 MG/DL (70-104); PHOSPHORUS 1.8 MG/DL (2.3-4.5); POTASSIUM 3.5 MMOL/L (3.5-5.1); SODIUM 139 MMOL/L (135-145); TOTAL CARBON DIOXIDE 27.7 MMOL/L (24-32); TOTAL PROTEIN 5.7 G/DL (6.4-8.2); eGFR 64 ML/MIN
[2017-10-21 08:48] LABS: MAGNESIUM 1.6 MG/DL (1.5-2.4)
[2017-10-21 14:56] VITALS: BP 118/74
[2017-10-21 20:00] VITALS: BP 114/72
[2017-10-21] MEDS: HYDROcodone/acetaminophen 10/325mg tab PO PRN (20:37)
[2017-10-22] VITALS: BP 115/70
[2017-10-22] MEDS: meropenem inj 1 GM in dextrose 5%-water 100 ML IV SCH ×2 (00:17→08:11)
[2017-10-22] MEDS: mag hydrox/Alum hydrox/simeth 30ml oral suspension PO PRN (01:00)
[2017-10-22] MEDS: ondansetron/PF 4mg/2ml inj IV PRN (01:00)
[2017-10-22] MEDS ORDERED: HYDROmorphone inj. 0.5 MG/0.5 ML DISP.SYRIN ONE (03:50)
[2017-10-22 06:52] VITALS: BP 115/64
[2017-10-22] MEDS: LACTOSE-FREE FOOD (BOOST BREEZE) 237ML PO SCH ×2 (08:00→13:00)
[2017-10-22] MEDS: pantoprazole 40mg Tablet.DR PO SCH (08:11)
[2017-10-22] MEDS: enoxaparin 40mg/0.4ml syringe SUBCUT SCH (08:12)
[2017-10-22] MEDS: normal saline 1000ml 1,000 ML IV SCH (08:13)
[2017-10-22] MEDS: HYDROcodone/acetaminophen 10/325mg tab PO PRN (09:45)
[2017-10-22 11:46] VITALS: BP 114/68
[2017-10-22] MEDS ORDERED: ciprofloxacin 250mg tablet PO SCH (20:00)
== END 2017-10-22 14:50 | DRG 853 ==
LOC: ER 10:52 → ED HOLD 13:01 → SUR 3N 23:05 → ICU 2S 10-15 20:32 → SUR 3N 10-21 02:55
PROVIDERS: ADMIT Emergency Medicine; ATTEND Family Medicine
PROC: 4A02XM4 Measurement of Cardiac Total Activity, External Approach (ICD-10-PCS; 2017-10-14)
PROC: 3E073KZ Introduction of Other Diagnostic Substance into Coronary Artery, Percutaneous Approach (ICD-10-PCS; 2017-10-14)
PROC: 0DNN4ZZ Release Sigmoid Colon, Percutaneous Endoscopic Approach (ICD-10-PCS; 2017-10-15)
PROC: 0T788DZ Dilation of Bilateral Ureters with Intraluminal Device, Via Natural or Artificial Opening Endoscopic (ICD-10-PCS; 2017-10-15)
PROC: BT1F1ZZ Fluoroscopy of Left Kidney, Ureter and Bladder using Low Osmolar Contrast (ICD-10-PCS; 2017-10-15)
PROC: 0TQB4ZZ Repair Bladder, Percutaneous Endoscopic Approach (ICD-10-PCS; 2017-10-15)
PROC: 0DBN4ZZ Excision of Sigmoid Colon, Percutaneous Endoscopic Approach (ICD-10-PCS; principal; 2017-10-15 12:59)
PROC: 0WJG4ZZ Inspection of Peritoneal Cavity, Percutaneous Endoscopic Approach (ICD-10-PCS; 2017-10-18)
DX: A41.9 Sepsis, unspecified organism (principal); N17.0 Acute kidney failure with tubular necrosis; E43 Unspecified severe protein-calorie malnutrition; E87.1 Hypo-osmolality and hyponatremia; J44.9 Chronic obstructive pulmonary disease, unspecified; K57.20 Diverticulitis of large intestine with perforation and abscess without bleeding; N32.1 Vesicointestinal fistula; N39.0 Urinary tract infection, site not specified; F03.90 Unspecified dementia, unspecified severity, without behavioral disturbance, psychotic disturbance, mood disturbance, and anxiety; D64.9 Anemia, unspecified; I71.9 Aortic aneurysm of unspecified site, without rupture; K66.0 Peritoneal adhesions (postprocedural) (postinfection); N18.9 Chronic kidney disease, unspecified; B96.4 Proteus (mirabilis) (morganii) as the cause of diseases classified elsewhere; B96.1 Klebsiella pneumoniae [K. pneumoniae] as the cause of diseases classified elsewhere; B96.20 Unspecified Escherichia coli [E. coli] as the cause of diseases classified elsewhere; I25.10 Atherosclerotic heart disease of native coronary artery without angina pectoris; I25.2 Old myocardial infarction; Z88.2 Allergy status to sulfonamides; Z88.8 Allergy status to other drugs, medicaments and biological substances; Z85.46 Personal history of malignant neoplasm of prostate; Z87.440 Personal history of urinary (tract) infections; Z68.26 Body mass index [BMI] 26.0-26.9, adult
CPT/HCPCS: 36415; 36569; 71045; 76000; 76937; 78452; 80048; 80053; 81001; 82948; 83605; 83735; 84100; 85025; 85610; 86885; 86900; 86901; 86920; 87040; 87070; 87077; 87088; 87186; 88307; 93005; 93017; 93306; 94640; 94760; 96365; 97110; 97116; 97162; 97164; 97530; 99285; A4344; A4402; A6209; A6212; A6213; A6251; A6253; A6257; A6449; A7000; A9500; C1758; C1769; J0690; J0780; J1170; J1650; J2001; J2185; J2250; J2405; J2543; J2704; J2710; J3010; J3490; J7030; J7060; J7120; P9045; Q9967

== ENCOUNTER 2017-11-03 19:10 | Inpatient (IN) | payer MEDICARE, OTHER ==
[~2017-11-03 19:10] MED LIST: CLOP75TA35 PO; DOXA4TAB3 PO; MELO-102 PO; PANT-47 PO
[2017-11-03] MEDS ORDERED: mag hydrox/Alum hydrox/simeth 30ml oral suspension PO PRN (19:35)
[2017-11-03] MEDS ORDERED: docusate sod 100mg capsule PO PRN (19:35)
[2017-11-03] MEDS ORDERED: magnesium hydroxide 30ml (MOM) UD suspension PO PRN (19:35)
[2017-11-03] MEDS ORDERED: morphine 4 MG/ML inj SYRINge IV PRN ×2 (19:35)
[2017-11-03] MEDS ORDERED: ondansetron/PF 4mg/2ml inj IV PRN (19:35)
[2017-11-03] MEDS ORDERED: acetaminophen 325mg tablet PO PRN ×2 (19:35)
[2017-11-03 19:37] VITALS: BP 120/89
[2017-11-03] MEDS ORDERED: fluconazole-Diflucan 200mg/NS 100 ML IV SCH (20:10)
[2017-11-03 20:34] LABS: BASOPHILS % (AUTO) 0.3 % (0-1); EOSINOPHILS # (AUTO) 0.4 X10'3 (0-0.9); EOSINOPHILS % (AUTO) 3.8 % (0-6); HEMATOCRIT 31.8 % (42.0-52.0); HEMOGLOBIN 10.8 g/dl (14.0-17.9); LYMPHOCYTES % (AUTO) 20.3 % (21-51); MEAN CORPUSCULAR HEMOGLOBIN 28.2 PG (27.0-31.0); MEAN CORPUSCULAR HGB CONC 34.1 % (33.0-36.5); MEAN CORPUSCULAR VOLUME 82.9 FL (78-98); MEAN PLATELET VOLUME 7.3 FL (7.4-10.4); MONOCYTES # (AUTO) 0.7 X10'3 (0-0.9); NEUTROPHILS # (AUTO) 6.6 X10'3 (1.8-7.7); NEUTROPHILS % (AUTO) 68.6 % (42-75); PLATELET COUNT 525 X10'3 (140-440); RED BLOOD COUNT 3.84 X10'6 (4.70-6.10); RED CELL DISTRIBUTION WIDTH 15.6 % (11.5-14.5); WHITE BLOOD COUNT 9.6 X10'3 (4.5-11.0)
[2017-11-03 20:45] LABS: PROTHROMBIN TIME 10.3 SECONDS (9.0-12.0)
[2017-11-03 20:59] LABS: ALANINE AMINOTRANSFERASE 42 U/L (12-78); ALBUMIN 2.3 G/DL (3.4-5.0); ALBUMIN/GLOBULIN RATIO 0.5 (1.1-1.5); ALKALINE PHOSPHATASE 103 IU/L (46-116); ANION GAP 11 (8-16); ASPARTATE AMINO TRANSFERASE 26 U/L (10-37); BILIRUBIN,DIRECT 0.1 MG/DL (0-0.3); BILIRUBIN,TOTAL 0.2 MG/DL (0.1-1.0); BLOOD UREA NITROGEN 19 MG/DL (7-18); CALCIUM 7.7 MG/DL (8.5-10.1); CHLORIDE 106 MMOL/L (99-107); CREATININE 1.58 MG/DL (0.60-1.10); GLUCOSE 196 MG/DL (70-104); SODIUM 142 MMOL/L (135-145); TOTAL CARBON DIOXIDE 24.7 MMOL/L (24-32); TOTAL PROTEIN 6.6 G/DL (6.4-8.2); eGFR 43 ML/MIN
[2017-11-03] MEDS ORDERED: non-formulary drug (Doxazosin Mesylate 1 TAB) PO SCH (21:00)
[2017-11-03 21:04] LABS: POTASSIUM 2.8 MMOL/L (3.5-5.1)
[2017-11-03] MEDS ORDERED: potassium Cl 20 mEq SR tablet PO STA (21:12)
[2017-11-03] MEDS ORDERED: potassium Cl 20 mEq SR tablet PO PRN (21:15)
[2017-11-03] MEDS ORDERED: potassium Cl 40MEQ/NS 500ml 500 ML IV PRN ×2 (21:15)
[2017-11-03] MEDS: micafungin inj 100 MG in normal saline 100ml IV soln 100 ML IV SCH (21:28)
[2017-11-03 21:29] LABS: MAGNESIUM 1.5 MG/DL (1.5-2.4)
[2017-11-03] MEDS: doxazosin mesylate 2mg tablet PO SCH (21:29)
[2017-11-03] MEDS: normal saline 1000ml 1,000 ML IV SCH (21:30)
[2017-11-03 22:18] LABS: CLARITY,URINE SLIGHTLY CLOUDY (Clear); COLOR,URINE YELLOW (Yellow); GLUCOSE, URINE 100 mg/dl (Neg); KETONES,URINE NEGATIVE (Neg); LEUKOCYTE ESTERASE ,URINE NEGATIVE (Neg); NITRITES, URINE NEGATIVE (Neg); OCCULT BLOOD,URINE LARGE (Neg); PROTEIN,URINE TRACE mg/dl (Neg); UROBILINOGEN,URINE 0.2 E.U/dL (0.2-1.0)
[2017-11-03 22:23] LABS: UA COLLECTION TYPE NON-SPECIFIED
[2017-11-03 22:24] LABS: YEAST MANY /HPF (NEGATIVE)
[2017-11-03 22:25] LABS: BACTERIA,URINE 1+ /HPF (Neg); MUCUS STRANDS FEW /LPF (Neg); RBC,URINE 50-100 /HPF (0-2); SQUAMOUS EPITHELIAL CELL,UR FEW /LPF (FEW); WBC CLUMPS,URINE MODERATE /HPF (NEGATIVE)
[2017-11-03] MEDS ORDERED: magnesium 2GM in 50ml NS 50 ML IV PRN (23:50)
[2017-11-03] MEDS ORDERED: magnesium 4gm in 100ml NS 100 ML IV PRN (23:50)
[2017-11-03] MEDS ORDERED: magnesium 1 gm/2ml inj. 1 GM in normal saline 50ml IV soln 48 ML IV ONE (23:55)
[2017-11-04] VITALS: BP 116/73
[2017-11-04] MEDS ORDERED: magnesium Cl slow-release 64mg tablet PO ONE (00:40)
[2017-11-04 05:44] LABS: BASOPHILS % (AUTO) 0.2 % (0-1); EOSINOPHILS # (AUTO) 0.4 X10'3 (0-0.9); EOSINOPHILS % (AUTO) 4.1 % (0-6); HEMATOCRIT 31.2 % (42.0-52.0); HEMOGLOBIN 10.3 g/dl (14.0-17.9); LYMPHOCYTES # (AUTO) 2.6 X10'3 (1.1-4.8); MEAN CORPUSCULAR HEMOGLOBIN 27.7 PG (27.0-31.0); MEAN CORPUSCULAR HGB CONC 33.1 % (33.0-36.5); MEAN CORPUSCULAR VOLUME 83.7 FL (78-98); MEAN PLATELET VOLUME 7.2 FL (7.4-10.4); MONOCYTES # (AUTO) 0.7 X10'3 (0-0.9); MONOCYTES % (AUTO) 7.3 % (2-12); NEUTROPHILS # (AUTO) 6.5 X10'3 (1.8-7.7); NEUTROPHILS % (AUTO) 63.4 % (42-75); PLATELET COUNT 479 X10'3 (140-440); RED BLOOD COUNT 3.73 X10'6 (4.70-6.10); RED CELL DISTRIBUTION WIDTH 15.4 % (11.5-14.5); WHITE BLOOD COUNT 10.2 X10'3 (4.5-11.0)
[2017-11-04 06:10] LABS: ALBUMIN 2.1 G/DL (3.4-5.0); ANION GAP 11 (8-16); BLOOD UREA NITROGEN 16 MG/DL (7-18); BUN/CREATININE RATIO 11.9 (5.4-32.0); CALCIUM 7.5 MG/DL (8.5-10.1); CHLORIDE 108 MMOL/L (99-107); CREATININE 1.35 MG/DL (0.60-1.10); GLUCOSE 111 MG/DL (70-104); MAGNESIUM 1.4 MG/DL (1.5-2.4); POTASSIUM 3.7 MMOL/L (3.5-5.1); SODIUM 143 MMOL/L (135-145); TOTAL CARBON DIOXIDE 24.5 MMOL/L (24-32); eGFR 51 ML/MIN
[2017-11-04] MEDS: normal saline 1000ml 1,000 ML IV SCH (07:15)
[2017-11-04 07:38] VITALS: BP 116/68
[2017-11-04] MEDS ORDERED: magnesium Cl slow-release 64mg tablet PO SCH (08:00)
[2017-11-04] MEDS: clopidogrel 75mg tablet PO SCH (09:21)
[2017-11-04] MEDS: pantoprazole 40mg Tablet.DR PO SCH (09:21)
[2017-11-04 10:56] LABS: CLARITY,URINE CLEAR (Clear); COLOR,URINE YELLOW (Yellow); GLUCOSE, URINE NEGATIVE (Neg); KETONES,URINE NEGATIVE (Neg); LEUKOCYTE ESTERASE ,URINE NEGATIVE (Neg); NITRITES, URINE NEGATIVE (Neg); OCCULT BLOOD,URINE TRACE-INTACT (Neg); PH,URINE 6.5 (4.8-8.0); PROTEIN,URINE NEGATIVE (Neg); UROBILINOGEN,URINE 0.2 E.U/dL (0.2-1.0)
[2017-11-04 11:11] LABS: UA COLLECTION TYPE CLN CATCH MIDSTREAM
[2017-11-04 11:12] LABS: BACTERIA,URINE NONE SEEN /HPF (Neg); RBC,URINE 0-2 /HPF (0-2); SQUAMOUS EPITHELIAL CELL,UR FEW /LPF (FEW); WBC,URINE NONE SEEN /HPF (0-4)
[2017-11-04 11:42] VITALS: BP 111/66
[2017-11-04 19:00] VITALS: BP 117/69
[2017-11-04] MEDS: doxazosin mesylate 2mg tablet PO SCH (20:19)
[2017-11-04] MEDS: micafungin inj 100 MG in normal saline 100ml IV soln 100 ML IV SCH (20:20)
[2017-11-04] MEDS: POTASSIUM CL IV SCH (22:04)
[2017-11-04] MEDS: NORMAL SALINE IV SCH (22:04)
[2017-11-04 23:40] VITALS: BP 117/75
[2017-11-05 05:52] LABS: BASOPHILS % (AUTO) 0.4 % (0-1); EOSINOPHILS # (AUTO) 0.3 X10'3 (0-0.9); HEMATOCRIT 28.6 % (42.0-52.0); HEMOGLOBIN 9.6 g/dl (14.0-17.9); LYMPHOCYTES # (AUTO) 2.3 X10'3 (1.1-4.8); LYMPHOCYTES % (AUTO) 24.1 % (21-51); MEAN CORPUSCULAR HEMOGLOBIN 27.9 PG (27.0-31.0); MEAN CORPUSCULAR HGB CONC 33.5 % (33.0-36.5); MEAN CORPUSCULAR VOLUME 83.1 FL (78-98); MEAN PLATELET VOLUME 7.2 FL (7.4-10.4); MONOCYTES # (AUTO) 0.8 X10'3 (0-0.9); NEUTROPHILS # (AUTO) 6.1 X10'3 (1.8-7.7); NEUTROPHILS % (AUTO) 64.5 % (42-75); PLATELET COUNT 410 X10'3 (140-440); RED BLOOD COUNT 3.45 X10'6 (4.70-6.10); RED CELL DISTRIBUTION WIDTH 15.9 % (11.5-14.5); WHITE BLOOD COUNT 9.4 X10'3 (4.5-11.0)
[2017-11-05 06:00] LABS: ANION GAP 10 (8-16); BLOOD UREA NITROGEN 17 MG/DL (7-18); BUN/CREATININE RATIO 13.6 (5.4-32.0); CALCIUM 7.4 MG/DL (8.5-10.1); CHLORIDE 106 MMOL/L (99-107); CREATININE 1.25 MG/DL (0.60-1.10); GLUCOSE 123 MG/DL (70-104); MAGNESIUM 1.4 MG/DL (1.5-2.4); POTASSIUM 3.3 MMOL/L (3.5-5.1); SODIUM 139 MMOL/L (135-145); TOTAL CARBON DIOXIDE 22.7 MMOL/L (24-32); eGFR 56 ML/MIN
[2017-11-05 07:00] VITALS: BP 118/73
[2017-11-05] MEDS: clopidogrel 75mg tablet PO SCH (08:21)
[2017-11-05] MEDS: pantoprazole 40mg Tablet.DR PO SCH (08:22)
[2017-11-05] MEDS: micafungin inj 100 MG in normal saline 100ml IV soln 100 ML IV SCH (08:22)
[2017-11-05] MEDS: POTASSIUM CL IV SCH (08:23)
[2017-11-05] MEDS: NORMAL SALINE IV SCH (08:23)
[2017-11-05] MEDS: enoxaparin 40mg/0.4ml syringe SUBCUT SCH (08:25)
[2017-11-05] MEDS: fluconazole 100mg tablet PO SCH (10:45)
[2017-11-05 11:14] VITALS: BP 121/79
[2017-11-05 19:35] VITALS: BP 119/75
[2017-11-05] MEDS: doxazosin mesylate 2mg tablet PO SCH (21:12)
[2017-11-06] VITALS: BP 114/76
[2017-11-06 06:15] LABS: BASOPHILS % (AUTO) 0.5 % (0-1); EOSINOPHILS # (AUTO) 0.3 X10'3 (0-0.9); EOSINOPHILS % (AUTO) 3.4 % (0-6); HEMATOCRIT 29.3 % (42.0-52.0); HEMOGLOBIN 9.8 g/dl (14.0-17.9); LYMPHOCYTES # (AUTO) 2.1 X10'3 (1.1-4.8); LYMPHOCYTES % (AUTO) 24.9 % (21-51); MEAN CORPUSCULAR HEMOGLOBIN 27.7 PG (27.0-31.0); MEAN CORPUSCULAR HGB CONC 33.5 % (33.0-36.5); MEAN CORPUSCULAR VOLUME 82.6 FL (78-98); MEAN PLATELET VOLUME 7.1 FL (7.4-10.4); MONOCYTES # (AUTO) 0.8 X10'3 (0-0.9); MONOCYTES % (AUTO) 9.4 % (2-12); NEUTROPHILS # (AUTO) 5.3 X10'3 (1.8-7.7); NEUTROPHILS % (AUTO) 61.8 % (42-75); PLATELET COUNT 419 X10'3 (140-440); RED BLOOD COUNT 3.55 X10'6 (4.70-6.10); WHITE BLOOD COUNT 8.6 X10'3 (4.5-11.0)
[2017-11-06 06:27] LABS: ALBUMIN 2.1 G/DL (3.4-5.0); ANION GAP 11 (8-16); BLOOD UREA NITROGEN 16 MG/DL (7-18); BUN/CREATININE RATIO 11.9 (5.4-32.0); CALCIUM 7.7 MG/DL (8.5-10.1); CHLORIDE 104 MMOL/L (99-107); CREATININE 1.34 MG/DL (0.60-1.10); GLUCOSE 110 MG/DL (70-104); MAGNESIUM 1.5 MG/DL (1.5-2.4); POTASSIUM 3.2 MMOL/L (3.5-5.1); SODIUM 140 MMOL/L (135-145); eGFR 51 ML/MIN
[2017-11-06 07:00] VITALS: BP 109/71
[2017-11-06] MEDS: clopidogrel 75mg tablet PO SCH (08:00)
[2017-11-06] MEDS: enoxaparin 40mg/0.4ml syringe SUBCUT SCH (08:00)
[2017-11-06] MEDS: pantoprazole 40mg Tablet.DR PO SCH (08:27)
[2017-11-06] MEDS: fluconazole 100mg tablet PO SCH (08:28)
[2017-11-06] MEDS: potassium Cl 20 mEq SR tablet PO PRN ×2 (08:31→19:00)
[2017-11-06] MEDS ORDERED: ringers solution, lacted 1,000 ML IV ONE (09:27)
[2017-11-06 12:15] VITALS: BP 122/86
[2017-11-06 19:50] VITALS: BP 124/74
[2017-11-06] MEDS: doxazosin mesylate 2mg tablet PO SCH (21:34)
[2017-11-06] MEDS ORDERED: potassium Cl 40MEQ/NS 500ml 500 ML IV PRN ×2 (22:40)
[2017-11-06] MEDS ORDERED: potassium Cl 20 mEq SR tablet PO PRN ×2 (22:40)
[2017-11-06 23:35] VITALS: BP 127/81
[2017-11-07] VITALS (13 sets, daily range): BP systolic 102–135; BP diastolic 61–76
[2017-11-07 05:19] LABS: BASOPHILS % (AUTO) 0.3 % (0-1); EOSINOPHILS # (AUTO) 0.2 X10'3 (0-0.9); EOSINOPHILS % (AUTO) 2.4 % (0-6); HEMATOCRIT 30.9 % (42.0-52.0); HEMOGLOBIN 10.3 g/dl (14.0-17.9); LYMPHOCYTES # (AUTO) 2.5 X10'3 (1.1-4.8); LYMPHOCYTES % (AUTO) 25.9 % (21-51); MEAN CORPUSCULAR HEMOGLOBIN 27.6 PG (27.0-31.0); MEAN CORPUSCULAR HGB CONC 33.3 % (33.0-36.5); MEAN CORPUSCULAR VOLUME 82.8 FL (78-98); MEAN PLATELET VOLUME 7.2 FL (7.4-10.4); MONOCYTES # (AUTO) 0.8 X10'3 (0-0.9); MONOCYTES % (AUTO) 8.4 % (2-12); NEUTROPHILS # (AUTO) 6.1 X10'3 (1.8-7.7); PLATELET COUNT 402 X10'3 (140-440); RED BLOOD COUNT 3.74 X10'6 (4.70-6.10); RED CELL DISTRIBUTION WIDTH 16.4 % (11.5-14.5); WHITE BLOOD COUNT 9.6 X10'3 (4.5-11.0)
[2017-11-07 05:46] LABS: ALBUMIN 2.2 G/DL (3.4-5.0); ANION GAP 11 (8-16); BLOOD UREA NITROGEN 16 MG/DL (7-18); CALCIUM 8.1 MG/DL (8.5-10.1); CHLORIDE 104 MMOL/L (99-107); CREATININE 1.46 MG/DL (0.60-1.10); GLUCOSE 127 MG/DL (70-104); MAGNESIUM 1.6 MG/DL (1.5-2.4); POTASSIUM 3.7 MMOL/L (3.5-5.1); SODIUM 139 MMOL/L (135-145); TOTAL CARBON DIOXIDE 24.4 MMOL/L (24-32); eGFR 47 ML/MIN
[2017-11-07] MEDS: enoxaparin 40mg/0.4ml syringe SUBCUT SCH (07:12)
[2017-11-07] MEDS: clopidogrel 75mg tablet PO SCH (07:12)
[2017-11-07] MEDS: pantoprazole 40mg Tablet.DR PO SCH (07:21)
[2017-11-07] MEDS: fluconazole 100mg tablet PO SCH (07:21)
[2017-11-07 07:43] LABS: PROTHROMBIN TIME 10.3 SECONDS (9.0-12.0)
[2017-11-07] MEDS ORDERED: midazolam 2 mg/2 ml injection ONE (07:44)
[2017-11-07] MEDS ORDERED: fentaNYL/PF 50MCG/1 ML 2ML syringe ONE ×2 (07:44→08:10)
[2017-11-07] MEDS ORDERED: LIDOcaine 1%/PF (10mg/ml) 5ml vial ONE (07:45)
[2017-11-07] MEDS ORDERED: propofol inj 20 ML IV ONE (07:45)
[2017-11-07] MEDS ORDERED: ringers solution, lacted 1,000 ML IV SCH (07:46)
[2017-11-07] MEDS ORDERED: sevoflurane 250ml liquid IH ONE (07:50)
[2017-11-07] MEDS ORDERED: ondansetron/PF 4mg/2ml inj ONE (07:50)
[2017-11-07] MEDS ORDERED: ondansetron/PF 4mg/2ml inj IV PRN (07:50)
[2017-11-07] MEDS ORDERED: dexamethasone sod phosphate 10mg/ml inj ONE (07:50)
[2017-11-07] MEDS ORDERED: labetalol 5mg/ml 20ml inj. IV PRN (07:50)
[2017-11-07] MEDS ORDERED: fentaNYL/PF 50MCG/1 ML 2ML syringe IV PRN ×2 (07:50)
[2017-11-07] MEDS ORDERED: morphine 4 MG/ML inj SYRINge IV PRN ×2 (07:50)
[2017-11-07] MEDS ORDERED: hydrALAZINE 20mg/ml inj. IV PRN (07:50)
[2017-11-07] MEDS ORDERED: FLUC100T9 PO (11:04)
== END 2017-11-07 11:15 | disposition home health service (06) | DRG 854 ==
LOC: SUR 3N 19:10 → MED 3N 19:36
PROVIDERS: ADMIT Surgery; ATTEND Surgery
PROC: 0WBF0ZZ Excision of Abdominal Wall, Open Approach (ICD-10-PCS; principal; 2017-11-07 07:50)
DX: B37.9 Candidiasis, unspecified (principal); N17.9 Acute kidney failure, unspecified; E86.0 Dehydration; T81.30XA Disruption of wound, unspecified, initial encounter; R78.81 Bacteremia; F03.90 Unspecified dementia, unspecified severity, without behavioral disturbance, psychotic disturbance, mood disturbance, and anxiety; E87.6 Hypokalemia; I25.10 Atherosclerotic heart disease of native coronary artery without angina pectoris; F17.210 Nicotine dependence, cigarettes, uncomplicated; I25.2 Old myocardial infarction; Z88.2 Allergy status to sulfonamides; Z88.8 Allergy status to other drugs, medicaments and biological substances; Z79.02 Long term (current) use of antithrombotics/antiplatelets; Z79.899 Other long term (current) drug therapy; Z85.46 Personal history of malignant neoplasm of prostate; Y92.89 Other specified places as the place of occurrence of the external cause
CPT/HCPCS: 36415; 80048; 80076; 81001; 83605; 83735; 85025; 85610; 87040; 87070; 87077; 87088; 87186; 93308; A6212; A6213; A6253; A6255; A6266; A6446; A6449; A7000; J1100; J1450; J1650; J2001; J2248; J2250; J2405; J2704; J3010; J3475; J3480; J3490; J7030; J7120

== ENCOUNTER 2017-12-01 10:24 | Outpatient (CLI) | payer MEDICARE, OTHER ==
[~2017-12-01 10:24] MED LIST changes: +FLUC100T9 PO
[2017-12-01] MEDS ORDERED: diatrizoate meglumine 300mg/ml (30%) 300ml UR ONE (10:55)
[2017-12-01] MEDS ORDERED: LIDOcaine 2% 10ml TOPICAL JELLY (Urojet) TP ONE (11:15)
== END 2017-12-01 23:59 | disposition home or self-care (01) ==
LOC: 64 CT 10:24
PROVIDERS: ATTEND Surgery
DX: I71.9 Aortic aneurysm of unspecified site, without rupture (principal); R89.5 Abnormal microbiological findings in specimens from other organs, systems and tissues
CPT/HCPCS: 72193; A4315; Q9958

== ENCOUNTER 2018-01-19 08:29 | Emergency (ER) | payer MEDICARE, OTHER ==
[~2018-01-19] VITALS: Ht 177.8 cm; Wt 80.5 kg
[2018-01-19 09:02] LABS: CLARITY,URINE SLIGHTLY CLOUDY (Clear); COLOR,URINE YELLOW (Yellow); GLUCOSE, URINE NEGATIVE (Neg); KETONES,URINE NEGATIVE (Neg); LEUKOCYTE ESTERASE ,URINE TRACE (Neg); NITRITES, URINE NEGATIVE (Neg); OCCULT BLOOD,URINE SMALL (Neg); PROTEIN,URINE 30 mg/dl (Neg); UROBILINOGEN,URINE 0.2 E.U/dL (0.2-1.0)
[2018-01-19 09:10] LABS: UA COLLECTION TYPE CLN CATCH MIDSTREAM
[2018-01-19 09:16] LABS: MUCUS STRANDS MODERATE /LPF (Neg); SQUAMOUS EPITHELIAL CELL,UR MODERATE /LPF (FEW)
[2018-01-19 09:17] LABS: BACTERIA,URINE 3+ /HPF (Neg); WBC,URINE 30-50 /HPF (0-4)
[2018-01-19 09:55] LABS: BASOPHILS % (AUTO) 0.3 % (0-1); EOSINOPHILS # (AUTO) 0.2 X10'3 (0-0.9); EOSINOPHILS % (AUTO) 1.8 % (0-6); HEMATOCRIT 38.4 % (42.0-52.0); HEMOGLOBIN 12.9 g/dl (14.0-17.9); LYMPHOCYTES # (AUTO) 1.6 X10'3 (1.1-4.8); MEAN CORPUSCULAR HEMOGLOBIN 27.8 PG (27.0-31.0); MEAN CORPUSCULAR HGB CONC 33.5 % (33.0-36.5); MEAN CORPUSCULAR VOLUME 82.9 FL (78-98); MEAN PLATELET VOLUME 7.1 FL (7.4-10.4); MONOCYTES % (AUTO) 8.3 % (2-12); NEUTROPHILS # (AUTO) 9.2 X10'3 (1.8-7.7); NEUTROPHILS % (AUTO) 76.6 % (42-75); PLATELET COUNT 396 X10'3 (140-440); RED BLOOD COUNT 4.63 X10'6 (4.70-6.10); RED CELL DISTRIBUTION WIDTH 18.3 % (11.5-14.5)
[2018-01-19 10:07] LABS: PARTIAL THROMBOPLASTIN TIME 26 SECONDS (22-32)
[2018-01-19 10:10] LABS: ALANINE AMINOTRANSFERASE 40 U/L (12-78); ALBUMIN/GLOBULIN RATIO 0.6 (1.1-1.5); ALKALINE PHOSPHATASE 112 IU/L (46-116); ANION GAP 11 (8-16); ASPARTATE AMINO TRANSFERASE 21 U/L (10-37); BILIRUBIN,TOTAL 0.3 MG/DL (0.1-1.0); BLOOD UREA NITROGEN 30 MG/DL (7-18); BUN/CREATININE RATIO 17.5 (5.4-32.0); CALCIUM 8.9 MG/DL (8.5-10.1); CHLORIDE 101 MMOL/L (99-107); CREATININE 1.71 MG/DL (0.60-1.10); GLUCOSE 127 MG/DL (70-104); LIPASE < 50 U/L (73-393); MAGNESIUM 1.8 MG/DL (1.5-2.4); POTASSIUM 4.5 MMOL/L (3.5-5.1); SODIUM 134 MMOL/L (135-145); TOTAL CARBON DIOXIDE 21.7 MMOL/L (24-32); eGFR 39 ML/MIN
[2018-01-19 10:42] LABS: PLATELET ESTIMATE NORMAL
[2018-01-19 10:43] LABS: ANISOCYTOSIS 2+
[2018-01-19] MEDS ORDERED: morphine 4 MG/ML inj SYRINge IV ONE (11:10)
[2018-01-19] MEDS ORDERED: ondansetron/PF 4mg/2ml inj IV ONE (11:10)
[2018-01-19] MEDS ORDERED: LEVO500T2 PO (12:16)
[2018-01-19 12:24] VITALS: BP 106/57
== END 2018-01-19 12:36 | disposition home or self-care (01) ==
LOC: ER 08:30
DX: N39.0 Urinary tract infection, site not specified (principal); I25.2 Old myocardial infarction; Z85.46 Personal history of malignant neoplasm of prostate; Z98.890 Other specified postprocedural states; Z88.2 Allergy status to sulfonamides; Z88.8 Allergy status to other drugs, medicaments and biological substances; Z79.899 Other long term (current) drug therapy
CPT/HCPCS: 36415; 71045; 80053; 81001; 83690; 83735; 84145; 85025; 85610; 85730; 87040; 87088; 93005; 99285; J2405; J2270

== ENCOUNTER 2018-01-24 08:58 | Inpatient (IN) | payer MEDICARE, OTHER ==
[2018-01-24] VITALS (21 sets, daily range): BP systolic 96–119; BP diastolic 60–76
[~2018-01-24] VITALS: Ht 177.8 cm; Wt 80.5 kg
[~2018-01-24 08:58] MED LIST changes: +LEVO500T2 PO
[2018-01-24] MEDS ORDERED: normal saline 1000ML IV soln IVB ONE ×2 (09:20→11:40)
[2018-01-24] MEDS ORDERED: normal saline 1000ml 1,000 ML IV ONE ×2 (09:20→14:16)
[2018-01-24 10:20] LABS: BASOPHILS % (AUTO) 0.3 % (0-1); EOSINOPHILS # (AUTO) 0.1 X10'3 (0-0.9); EOSINOPHILS % (AUTO) 0.8 % (0-6); HEMATOCRIT 34.1 % (42.0-52.0); HEMOGLOBIN 11.6 g/dl (14.0-17.9); LYMPHOCYTES # (AUTO) 1.4 X10'3 (1.1-4.8); LYMPHOCYTES % (AUTO) 10.9 % (21-51); MEAN CORPUSCULAR VOLUME 82.3 FL (78-98); MEAN PLATELET VOLUME 6.9 FL (7.4-10.4); MONOCYTES # (AUTO) 0.9 X10'3 (0-0.9); MONOCYTES % (AUTO) 7.5 % (2-12); NEUTROPHILS % (AUTO) 80.5 % (42-75); PLATELET COUNT 384 X10'3 (140-440); RED BLOOD COUNT 4.14 X10'6 (4.70-6.10); RED CELL DISTRIBUTION WIDTH 18.5 % (11.5-14.5); WHITE BLOOD COUNT 12.5 X10'3 (4.5-11.0)
[2018-01-24] MEDS ORDERED: piperacillin/tazo 3.375gm/50ml 50 ML IV ONE (10:25)
[2018-01-24 10:36] LABS: PARTIAL THROMBOPLASTIN TIME 27 SECONDS (22-32); PROTHROMBIN TIME 10.5 SECONDS (9.0-12.0)
[2018-01-24 10:40] LABS: ALANINE AMINOTRANSFERASE 38 U/L (12-78); ALBUMIN 2.6 G/DL (3.4-5.0); ALBUMIN/GLOBULIN RATIO 0.5 (1.1-1.5); ALKALINE PHOSPHATASE 119 IU/L (46-116); ANION GAP 13 (8-16); ASPARTATE AMINO TRANSFERASE 20 U/L (10-37); BILIRUBIN,TOTAL 0.2 MG/DL (0.1-1.0); BLOOD UREA NITROGEN 43 MG/DL (7-18); BUN/CREATININE RATIO 20.8 (5.4-32.0); CHLORIDE 101 MMOL/L (99-107); CREATININE 2.07 MG/DL (0.60-1.10); ETHANOL < 0.010 GM/DL (0.0-0.010); GLUCOSE 144 MG/DL (70-104); LIPASE 81 U/L (73-393); MAGNESIUM 1.9 MG/DL (1.5-2.4); POTASSIUM 4.6 MMOL/L (3.5-5.1); SODIUM 135 MMOL/L (135-145); TOTAL PROTEIN 7.5 G/DL (6.4-8.2); eGFR 31 ML/MIN
[2018-01-24] MEDS: normal saline 1000ml 1,000 ML IV SCH ×2 (10:48→20:48)
[2018-01-24] MEDS ORDERED: ondansetron/PF 4mg/2ml inj IV PRN ×2 (10:50→14:20)
[2018-01-24] MEDS ORDERED: morphine 4 MG/ML inj SYRINge IV PRN ×4 (10:50→14:20)
[2018-01-24] MEDS ORDERED: fentaNYL/PF 50MCG/1 ML 2ML syringe ONE ×2 (12:28→13:29)
[2018-01-24] MEDS ORDERED: metoprolol tartrate 1mg/ml inj IV ONE (12:41)
[2018-01-24] MEDS ORDERED: sevoflurane 250ml liquid IH ONE (12:41)
[2018-01-24] MEDS ORDERED: propofol inj 20 ML IV ONE (13:02)
[2018-01-24] MEDS ORDERED: neostigmine methylsulfate 1 MG/ML 10ml vial ONE (13:02)
[2018-01-24] MEDS ORDERED: dexamethasone sod phosphate 4mg/ml inj. ONE (13:02)
[2018-01-24] MEDS ORDERED: ondansetron/PF 4mg/2ml inj ONE (13:02)
[2018-01-24] MEDS ORDERED: rocuronium 10mg/ml inj IV ONE (13:02)
[2018-01-24] MEDS ORDERED: glycopyrrolate 0.2mg/ml inj ONE (13:02)
[2018-01-24] MEDS ORDERED: succinylcholine 20mg/ml inj IV ONE (13:02)
[2018-01-24] MEDS ORDERED: LIDOcaine 2% (20mg/ml) 5ml vial ONE (13:02)
[2018-01-24] MEDS ORDERED: HYDROmorphone inj. 0.5 MG/0.5 ML DISP.SYRIN IV PRN ×2 (14:20)
[2018-01-24] MEDS ORDERED: morphine 2 MG/ML inj. syringe ONE (14:23)
[2018-01-24] MEDS ORDERED: HYDROmorphone 1 mg/ml syringe ONE (14:34)
[2018-01-24] MEDS ORDERED: acetaminophen 1,000mg/100ml IV 100 ML IV ONE (14:50)
[2018-01-24] MEDS ORDERED: HYDROmorphone/NS 1 mg/ml CADD 50 ML IV SCH (18:00)
[2018-01-24] MEDS ORDERED: CADD PCA waste documentation MC SCH (18:10)
[2018-01-24] MEDS ORDERED: naloxone 0.4 mg/ml inj IV PRN (18:10)
[2018-01-24] MEDS ORDERED: doxazosin mesylate 2mg tablet PO SCH (21:00)
[2018-01-25] VITALS (7 sets, daily range): BP systolic 73–114; BP diastolic 48–71
[2018-01-25] MEDS: normal saline 1000ml 1,000 ML IV SCH ×3 (00:03→20:06)
[2018-01-25] MEDS: HYDROmorphone/NS 1 mg/ml CADD 50 ML IV SCH ×12 (01:00→23:00)
[2018-01-25 05:47] LABS: BASOPHILS % (AUTO) 0 % (0-1); EOSINOPHILS % (AUTO) 0 % (0-6); HEMOGLOBIN 10.9 g/dl (14.0-17.9); LYMPHOCYTES # (AUTO) 1.1 X10'3 (1.1-4.8); LYMPHOCYTES % (AUTO) 3.9 % (21-51); MEAN CORPUSCULAR HEMOGLOBIN 27.8 PG (27.0-31.0); MEAN CORPUSCULAR HGB CONC 33.9 % (33.0-36.5); MEAN CORPUSCULAR VOLUME 81.9 FL (78-98); MEAN PLATELET VOLUME 6.9 FL (7.4-10.4); MONOCYTES # (AUTO) 1.9 X10'3 (0-0.9); MONOCYTES % (AUTO) 6.7 % (2-12); NEUTROPHILS # (AUTO) 24.7 X10'3 (1.8-7.7); NEUTROPHILS % (AUTO) 89.4 % (42-75); PLATELET COUNT 346 X10'3 (140-440); RED BLOOD COUNT 3.91 X10'6 (4.70-6.10)
[2018-01-25 05:52] LABS: ALBUMIN 2.1 G/DL (3.4-5.0); ANION GAP 14 (8-16); BLOOD UREA NITROGEN 35 MG/DL (7-18); BUN/CREATININE RATIO 17.6 (5.4-32.0); CHLORIDE 105 MMOL/L (99-107); CREATININE 1.99 MG/DL (0.60-1.10); GLUCOSE 132 MG/DL (70-104); POTASSIUM 4.7 MMOL/L (3.5-5.1); SODIUM 136 MMOL/L (135-145); TOTAL CARBON DIOXIDE 17.5 MMOL/L (24-32); eGFR 33 ML/MIN
[2018-01-25 05:58] LABS: WHITE BLOOD COUNT 27.7 X10'3 (4.5-11.0)
[2018-01-25] MEDS: piperacillin/tazo 3.375gm/50ml 50 ML IV SCH ×3 (07:47→20:06)
[2018-01-25] MEDS: pantoprazole 40mg Tablet.DR PO SCH (07:51)
[2018-01-25] MEDS: naproxen 500mg tablet PO SCH ×2 (07:51→20:06)
[2018-01-25 08:04] LABS: ANISOCYTOSIS 2+; PLATELET ESTIMATE NORMAL; TOTAL CELLS COUNTED 100
[2018-01-25] MEDS ORDERED: normal saline 500ml IV soln 500 ML IV ONE ×2 (11:20→13:35)
[2018-01-25] MEDS: clopidogrel 75mg tablet PO SCH ×2 (14:30→16:36)
[2018-01-25 18:58] LABS: CLARITY,URINE TURBID (Clear); COLOR,URINE YELLOW (Yellow); GLUCOSE, URINE 100 mg/dl (Neg); KETONES,URINE NEGATIVE (Neg); LEUKOCYTE ESTERASE ,URINE MODERATE (Neg); NITRITES, URINE NEGATIVE (Neg); OCCULT BLOOD,URINE LARGE (Neg); PH,URINE 5.5 (4.8-8.0); PROTEIN,URINE 100 mg/dl (Neg); UROBILINOGEN,URINE 0.2 E.U/dL (0.2-1.0)
[2018-01-25 19:00] LABS: UA COLLECTION TYPE NON-SPECIFIED
[2018-01-25 19:01] LABS: BACTERIA,URINE 4+ /HPF (Neg); RBC,URINE 20-50 /HPF (0-2); SQUAMOUS EPITHELIAL CELL,UR FEW /LPF (FEW); WBC,URINE 30-50 /HPF (0-4)
[2018-01-25] MEDS ORDERED: doxazosin mesylate 2mg tablet PO SCH (21:00)
[2018-01-26] VITALS: BP 79/45
[2018-01-26] MEDS: HYDROmorphone/NS 1 mg/ml CADD 50 ML IV SCH ×12 (00:48→23:00)
[2018-01-26] MEDS: piperacillin/tazo 3.375gm/50ml 50 ML IV SCH ×4 (01:22→19:13)
[2018-01-26 05:17] LABS: BASOPHILS % (AUTO) 0 % (0-1); EOSINOPHILS % (AUTO) 0.2 % (0-6); HEMATOCRIT 29.2 % (42.0-52.0); HEMOGLOBIN 9.5 g/dl (14.0-17.9); LYMPHOCYTES % (AUTO) 4.9 % (21-51); MEAN CORPUSCULAR HEMOGLOBIN 27.4 PG (27.0-31.0); MEAN CORPUSCULAR HGB CONC 32.6 % (33.0-36.5); MEAN PLATELET VOLUME 7.2 FL (7.4-10.4); MONOCYTES # (AUTO) 0.6 X10'3 (0-0.9); NEUTROPHILS # (AUTO) 18.5 X10'3 (1.8-7.7); NEUTROPHILS % (AUTO) 91.9 % (42-75); PLATELET COUNT 297 X10'3 (140-440); RED BLOOD COUNT 3.48 X10'6 (4.70-6.10); RED CELL DISTRIBUTION WIDTH 18.4 % (11.5-14.5); WHITE BLOOD COUNT 20.1 X10'3 (4.5-11.0)
[2018-01-26 05:22] LABS: ALBUMIN 1.7 G/DL (3.4-5.0); ANION GAP 9 (8-16); BLOOD UREA NITROGEN 43 MG/DL (7-18); BUN/CREATININE RATIO 20.2 (5.4-32.0); CALCIUM 7.8 MG/DL (8.5-10.1); CHLORIDE 106 MMOL/L (99-107); CREATININE 2.13 MG/DL (0.60-1.10); GLUCOSE 140 MG/DL (70-104); POTASSIUM 4.6 MMOL/L (3.5-5.1); SODIUM 136 MMOL/L (135-145); TOTAL CARBON DIOXIDE 20.9 MMOL/L (24-32); eGFR 30 ML/MIN
[2018-01-26 06:45] LABS: COLOR,URINE YELLOW (Yellow); KETONES,URINE TRACE mg/dl (Neg); LEUKOCYTE ESTERASE ,URINE MODERATE (Neg); NITRITES, URINE POSITIVE (Neg); OCCULT BLOOD,URINE LARGE (Neg); PROTEIN,URINE 100 mg/dl (Neg)
[2018-01-26 06:46] LABS: TOTAL CELLS COUNTED 100
[2018-01-26 06:47] LABS: ANISOCYTOSIS 2+; PLATELET ESTIMATE NORMAL
[2018-01-26 06:49] LABS: CLARITY,URINE CLEAR (Clear); GLUCOSE, URINE 100 mg/dl (Neg)
[2018-01-26 06:54] LABS: UA COLLECTION TYPE FOLEY CATH
[2018-01-26 06:58] LABS: BACTERIA,URINE 4+ /HPF (Neg); RBC,URINE TNTC /HPF (0-2); WBC,URINE TNTC /HPF (0-4)
[2018-01-26 06:59] LABS: SQUAMOUS EPITHELIAL CELL,UR MODERATE /LPF (FEW)
[2018-01-26 07:00] VITALS: BP 75/50
[2018-01-26] MEDS: clopidogrel 75mg tablet PO SCH (08:08)
[2018-01-26] MEDS: pantoprazole 40mg Tablet.DR PO SCH (08:08)
[2018-01-26] MEDS: naproxen 500mg tablet PO SCH ×2 (08:08→19:13)
[2018-01-26] MEDS: normal saline 1000ml 1,000 ML IV SCH (10:37)
[2018-01-26 11:52] VITALS: BP 98/63
[2018-01-26] MEDS: lactobacillus rhamnosus 10,000 MMU CELLS/CAPSULE PO SCH (19:13)
[2018-01-26 19:56] VITALS: BP 82/55
[2018-01-26 23:00] VITALS: BP 82/50
[2018-01-27] MEDS: HYDROmorphone/NS 1 mg/ml CADD 50 ML IV SCH ×12 (01:00→23:00)
[2018-01-27] MEDS: piperacillin/tazo 3.375gm/50ml 50 ML IV SCH ×3 (01:27→14:29)
[2018-01-27 05:03] LABS: BASOPHILS % (AUTO) 0.1 % (0-1); EOSINOPHILS # (AUTO) 0.2 X10'3 (0-0.9); EOSINOPHILS % (AUTO) 1.2 % (0-6); HEMATOCRIT 28.4 % (42.0-52.0); HEMOGLOBIN 9.3 g/dl (14.0-17.9); LYMPHOCYTES % (AUTO) 6.4 % (21-51); MEAN CORPUSCULAR HEMOGLOBIN 27.3 PG (27.0-31.0); MEAN CORPUSCULAR HGB CONC 32.8 % (33.0-36.5); MEAN CORPUSCULAR VOLUME 83.2 FL (78-98); MEAN PLATELET VOLUME 7.3 FL (7.4-10.4); MONOCYTES # (AUTO) 0.4 X10'3 (0-0.9); MONOCYTES % (AUTO) 2.3 % (2-12); NEUTROPHILS # (AUTO) 14.5 X10'3 (1.8-7.7); PLATELET COUNT 296 X10'3 (140-440); RED BLOOD COUNT 3.41 X10'6 (4.70-6.10); RED CELL DISTRIBUTION WIDTH 18.4 % (11.5-14.5); WHITE BLOOD COUNT 16.1 X10'3 (4.5-11.0)
[2018-01-27 05:31] LABS: ALBUMIN 1.6 G/DL (3.4-5.0); ANION GAP 9 (8-16); BLOOD UREA NITROGEN 45 MG/DL (7-18); CALCIUM 8.1 MG/DL (8.5-10.1); CHLORIDE 107 MMOL/L (99-107); CREATININE 1.96 MG/DL (0.60-1.10); GLUCOSE 119 MG/DL (70-104); POTASSIUM 4.2 MMOL/L (3.5-5.1); SODIUM 138 MMOL/L (135-145); eGFR 33 ML/MIN
[2018-01-27 06:37] LABS: ANISOCYTOSIS 2+; HYPOCHROMASIA 1+; PLATELET ESTIMATE NORMAL; TOTAL CELLS COUNTED 100
[2018-01-27 07:28] VITALS: BP 88/57
[2018-01-27] MEDS: lactobacillus rhamnosus 10,000 MMU CELLS/CAPSULE PO SCH ×2 (08:01→19:50)
[2018-01-27] MEDS: pantoprazole 40mg Tablet.DR PO SCH (08:01)
[2018-01-27] MEDS: clopidogrel 75mg tablet PO SCH (08:01)
[2018-01-27] MEDS: naproxen 500mg tablet PO SCH ×2 (08:02→19:50)
[2018-01-27] MEDS: normal saline 1000ml 1,000 ML IV SCH ×2 (08:48→14:29)
[2018-01-27 11:54] VITALS: BP 81/50
[2018-01-27] MEDS ORDERED: cefepime 1GM/NS ADD-VANTAGE 100 ML IV SCH (16:45)
[2018-01-27] MEDS: linezolid 600mg tablet PO SCH (19:50)
[2018-01-27] MEDS: meropenem inj 1 GM in normal saline 100ml IV soln 100 ML IV SCH (19:50)
[2018-01-27 20:00] VITALS: BP_SYST 77; BP_SYST 95; BP_SYST 98; BP_DIAS 49; BP_DIAS 64; BP_DIAS 68
[2018-01-27] MEDS ORDERED: linezolid 600mg/300ml PREMIX 300 ML IV SCH (20:00)
[2018-01-28] VITALS: BP 92/58
[2018-01-28] MEDS: HYDROmorphone/NS 1 mg/ml CADD 50 ML IV SCH ×8 (01:00→15:00)
[2018-01-28] MEDS: normal saline 1000ml 1,000 ML IV SCH ×2 (04:19→17:34)
[2018-01-28 05:26] LABS: BASOPHILS % (AUTO) 0.1 % (0-1); EOSINOPHILS # (AUTO) 0.2 X10'3 (0-0.9); EOSINOPHILS % (AUTO) 1.4 % (0-6); HEMATOCRIT 30.1 % (42.0-52.0); HEMOGLOBIN 9.9 g/dl (14.0-17.9); LYMPHOCYTES # (AUTO) 1.1 X10'3 (1.1-4.8); LYMPHOCYTES % (AUTO) 6.7 % (21-51); MEAN CORPUSCULAR HEMOGLOBIN 27.4 PG (27.0-31.0); MEAN PLATELET VOLUME 7.5 FL (7.4-10.4); MONOCYTES # (AUTO) 0.6 X10'3 (0-0.9); MONOCYTES % (AUTO) 3.4 % (2-12); NEUTROPHILS # (AUTO) 14.9 X10'3 (1.8-7.7); NEUTROPHILS % (AUTO) 88.4 % (42-75); PLATELET COUNT 309 X10'3 (140-440); RED BLOOD COUNT 3.62 X10'6 (4.70-6.10); RED CELL DISTRIBUTION WIDTH 18.5 % (11.5-14.5); WHITE BLOOD COUNT 16.9 X10'3 (4.5-11.0)
[2018-01-28 05:32] LABS: ALBUMIN 1.5 G/DL (3.4-5.0); ANION GAP 8 (8-16); BLOOD UREA NITROGEN 44 MG/DL (7-18); BUN/CREATININE RATIO 25.3 (5.4-32.0); CALCIUM 8.2 MG/DL (8.5-10.1); CHLORIDE 111 MMOL/L (99-107); CREATININE 1.74 MG/DL (0.60-1.10); GLUCOSE 98 MG/DL (70-104); POTASSIUM 4.1 MMOL/L (3.5-5.1); SODIUM 141 MMOL/L (135-145); TOTAL CARBON DIOXIDE 21.6 MMOL/L (24-32); eGFR 38 ML/MIN
[2018-01-28 07:10] VITALS: BP 96/65
[2018-01-28 07:18] LABS: ANISOCYTOSIS 2+; HYPOCHROMASIA 1+; PLATELET ESTIMATE NORMAL; TOTAL CELLS COUNTED 100
[2018-01-28 07:19] LABS: BURR CELLS FEW; POLYCHROMASIA FEW
[2018-01-28] MEDS: naproxen 500mg tablet PO SCH ×2 (10:02→19:59)
[2018-01-28] MEDS: meropenem inj 1 GM in normal saline 100ml IV soln 100 ML IV SCH ×2 (10:02→19:59)
[2018-01-28] MEDS: lactobacillus rhamnosus 10,000 MMU CELLS/CAPSULE PO SCH ×2 (10:03→19:59)
[2018-01-28] MEDS: pantoprazole 40mg Tablet.DR PO SCH (10:03)
[2018-01-28] MEDS: clopidogrel 75mg tablet PO SCH (10:03)
[2018-01-28] MEDS: linezolid 600mg tablet PO SCH ×2 (11:16→20:00)
[2018-01-28 11:53] VITALS: BP 94/57
[2018-01-28 11:54] VITALS: BP_SYST 92; BP_SYST 94; BP_DIAS 57; BP_DIAS 62; BP_DIAS 64
[2018-01-28 19:30] VITALS: BP_SYST 118; BP_SYST 135; BP_SYST 91; BP_SYST 97; BP_DIAS 59; BP_DIAS 71; BP_DIAS 77
[2018-01-28] MEDS: HYDROcodone/acetaminophen 10/325mg tab PO PRN (22:41)
[2018-01-29] VITALS: BP 102/71
[2018-01-29] MEDS: normal saline 1000ml 1,000 ML IV SCH ×2 (05:20→19:53)
[2018-01-29 05:44] LABS: BASOPHILS % (AUTO) 0.1 % (0-1); EOSINOPHILS # (AUTO) 0.4 X10'3 (0-0.9); EOSINOPHILS % (AUTO) 2.3 % (0-6); HEMATOCRIT 28.2 % (42.0-52.0); HEMOGLOBIN 9.4 g/dl (14.0-17.9); LYMPHOCYTES # (AUTO) 1.5 X10'3 (1.1-4.8); LYMPHOCYTES % (AUTO) 9.2 % (21-51); MEAN CORPUSCULAR HEMOGLOBIN 27.6 PG (27.0-31.0); MEAN CORPUSCULAR HGB CONC 33.5 % (33.0-36.5); MEAN CORPUSCULAR VOLUME 82.2 FL (78-98); MEAN PLATELET VOLUME 7.1 FL (7.4-10.4); MONOCYTES # (AUTO) 0.9 X10'3 (0-0.9); MONOCYTES % (AUTO) 5.6 % (2-12); NEUTROPHILS # (AUTO) 13.3 X10'3 (1.8-7.7); NEUTROPHILS % (AUTO) 82.8 % (42-75); PLATELET COUNT 347 X10'3 (140-440); RED BLOOD COUNT 3.43 X10'6 (4.70-6.10); RED CELL DISTRIBUTION WIDTH 18.7 % (11.5-14.5)
[2018-01-29 06:32] LABS: ALBUMIN 1.5 G/DL (3.4-5.0); ANION GAP 11 (8-16); BLOOD UREA NITROGEN 38 MG/DL (7-18); BUN/CREATININE RATIO 22.4 (5.4-32.0); CALCIUM 7.7 MG/DL (8.5-10.1); CHLORIDE 112 MMOL/L (99-107); GLUCOSE 108 MG/DL (70-104); POTASSIUM 3.7 MMOL/L (3.5-5.1); SODIUM 142 MMOL/L (135-145); TOTAL CARBON DIOXIDE 19.1 MMOL/L (24-32); eGFR 39 ML/MIN
[2018-01-29 07:04] VITALS: BP 97/62
[2018-01-29 07:20] LABS: ANISOCYTOSIS 2+; PLATELET ESTIMATE NORMAL
[2018-01-29 07:21] LABS: MICROCYTOSIS 1+; POIKILOCYTOSIS FEW; TARGET CELLS FEW
[2018-01-29] MEDS: meropenem inj 1 GM in normal saline 100ml IV soln 100 ML IV SCH ×2 (07:52→19:53)
[2018-01-29] MEDS: clopidogrel 75mg tablet PO SCH (07:52)
[2018-01-29] MEDS: pantoprazole 40mg Tablet.DR PO SCH (07:53)
[2018-01-29] MEDS: lactobacillus rhamnosus 10,000 MMU CELLS/CAPSULE PO SCH ×2 (07:53→19:53)
[2018-01-29] MEDS: linezolid 600mg tablet PO SCH ×2 (07:53→19:53)
[2018-01-29] MEDS: naproxen 500mg tablet PO SCH ×2 (07:53→19:53)
[2018-01-29] MEDS: HYDROcodone/acetaminophen 10/325mg tab PO PRN ×4 (07:54→21:13)
[2018-01-29 18:00] VITALS: BP 111/68
[2018-01-30] VITALS: BP 107/71
[2018-01-30 07:00] VITALS: BP 107/85
[2018-01-30] MEDS: pantoprazole 40mg Tablet.DR PO SCH (07:25)
[2018-01-30] MEDS: naproxen 500mg tablet PO SCH ×2 (08:12→20:12)
[2018-01-30] MEDS: linezolid 600mg tablet PO SCH ×2 (08:12→20:13)
[2018-01-30] MEDS: lactobacillus rhamnosus 10,000 MMU CELLS/CAPSULE PO SCH ×2 (08:12→20:13)
[2018-01-30] MEDS: clopidogrel 75mg tablet PO SCH (08:12)
[2018-01-30] MEDS: meropenem inj 1 GM in normal saline 100ml IV soln 100 ML IV SCH ×2 (08:13→20:12)
[2018-01-30] MEDS: normal saline 1000ml 1,000 ML IV SCH ×2 (08:19→20:13)
[2018-01-30 11:00] VITALS: BP 99/57
[2018-01-30] MEDS: HYDROcodone/acetaminophen 10/325mg tab PO PRN (11:21)
[2018-01-30 18:00] VITALS: BP 121/70
[2018-01-31 00:33] VITALS: BP 128/87
[2018-01-31 07:00] VITALS: BP 115/69
[2018-01-31] MEDS: meropenem inj 1 GM in normal saline 100ml IV soln 100 ML IV SCH ×2 (07:50→20:02)
[2018-01-31] MEDS: linezolid 600mg tablet PO SCH ×2 (07:51→20:01)
[2018-01-31] MEDS: lactobacillus rhamnosus 10,000 MMU CELLS/CAPSULE PO SCH ×2 (07:51→20:02)
[2018-01-31] MEDS: clopidogrel 75mg tablet PO SCH (07:51)
[2018-01-31] MEDS: pantoprazole 40mg Tablet.DR PO SCH (07:51)
[2018-01-31] MEDS: naproxen 500mg tablet PO SCH ×2 (07:51→20:02)
[2018-01-31 11:00] VITALS: BP 106/65
[2018-01-31] MEDS: normal saline 1000ml 1,000 ML IV SCH (11:11)
[2018-01-31 11:22] VITALS: BP 106/65
[2018-01-31 15:02] LABS: BASOPHILS # (AUTO) 0.1 X10'3 (0-0.2); EOSINOPHILS # (AUTO) 0.2 X10'3 (0-0.9); EOSINOPHILS % (AUTO) 2.1 % (0-6); HEMATOCRIT 29.3 % (42.0-52.0); HEMOGLOBIN 9.8 g/dl (14.0-17.9); LYMPHOCYTES # (AUTO) 1.4 X10'3 (1.1-4.8); LYMPHOCYTES % (AUTO) 15.8 % (21-51); MEAN CORPUSCULAR HEMOGLOBIN 27.3 PG (27.0-31.0); MEAN CORPUSCULAR HGB CONC 33.3 % (33.0-36.5); MEAN CORPUSCULAR VOLUME 81.8 FL (78-98); MONOCYTES # (AUTO) 0.7 X10'3 (0-0.9); MONOCYTES % (AUTO) 7.7 % (2-12); NEUTROPHILS # (AUTO) 6.6 X10'3 (1.8-7.7); NEUTROPHILS % (AUTO) 73.4 % (42-75); PLATELET COUNT 377 X10'3 (140-440); RED BLOOD COUNT 3.59 X10'6 (4.70-6.10)
[2018-01-31 15:14] LABS: ANISOCYTOSIS 2+; PLATELET ESTIMATE NORMAL; TOTAL CELLS COUNTED 100
[2018-01-31 15:15] LABS: MICROCYTOSIS 1+; POLYCHROMASIA FEW; TARGET CELLS FEW
[2018-01-31 15:17] LABS: ALANINE AMINOTRANSFERASE 19 U/L (12-78); ALBUMIN 1.4 G/DL (3.4-5.0); ALBUMIN/GLOBULIN RATIO 0.4 (1.1-1.5); ALKALINE PHOSPHATASE 87 IU/L (46-116); ANION GAP 8 (8-16); ASPARTATE AMINO TRANSFERASE 19 U/L (10-37); BILIRUBIN,TOTAL 0.3 MG/DL (0.1-1.0); BLOOD UREA NITROGEN 21 MG/DL (7-18); BUN/CREATININE RATIO 15.8 (5.4-32.0); CALCIUM 7.4 MG/DL (8.5-10.1); CHLORIDE 106 MMOL/L (99-107); CREATININE 1.33 MG/DL (0.60-1.10); GLUCOSE 147 MG/DL (70-104); POTASSIUM 3.5 MMOL/L (3.5-5.1); SODIUM 135 MMOL/L (135-145); TOTAL CARBON DIOXIDE 20.6 MMOL/L (24-32); TOTAL PROTEIN 5.4 G/DL (6.4-8.2); eGFR 52 ML/MIN
[2018-01-31 19:00] VITALS: BP 105/62
[2018-02-01] VITALS: BP 116/73
[2018-02-01] MEDS: normal saline 1000ml 1,000 ML IV SCH (00:16)
[2018-02-01 07:21] VITALS: BP 128/72
[2018-02-01] MEDS: lactobacillus rhamnosus 10,000 MMU CELLS/CAPSULE PO SCH (08:25)
[2018-02-01] MEDS: linezolid 600mg tablet PO SCH (08:25)
[2018-02-01] MEDS: clopidogrel 75mg tablet PO SCH (08:25)
[2018-02-01] MEDS: meropenem inj 1 GM in normal saline 100ml IV soln 100 ML IV SCH (08:25)
[2018-02-01] MEDS: pantoprazole 40mg Tablet.DR PO SCH (08:25)
[2018-02-01] MEDS: naproxen 500mg tablet PO SCH (08:25)
[2018-02-01] MEDS ORDERED: HYDR-3972 PO (11:14)
[2018-02-01] MEDS ORDERED: ERTA1VIA IV (11:14)
[2018-02-01] MEDS ORDERED: LINE600T6 PO (11:14)
[2018-02-01 12:00] VITALS: BP 128/72
[2018-02-01 12:01] VITALS: BP 109/71
== END 2018-02-01 14:45 | disposition home health service (06) | DRG 853 ==
LOC: ER 08:58 → PACU 10:48 → ED HOLD 11:26 → PACU 14:49 → SUR 3N 16:14
PROVIDERS: ADMIT Internal Medicine; ATTEND Internal Medicine
PROC: 0D1L0Z4 Bypass Transverse Colon to Cutaneous, Open Approach (ICD-10-PCS; 2018-01-24)
PROC: 0D1B0Z4 Bypass Ileum to Cutaneous, Open Approach (ICD-10-PCS; principal; 2018-01-24 12:41)
DX: A41.9 Sepsis, unspecified organism (principal); E43 Unspecified severe protein-calorie malnutrition; N32.1 Vesicointestinal fistula; N17.9 Acute kidney failure, unspecified; N39.0 Urinary tract infection, site not specified; N40.0 Benign prostatic hyperplasia without lower urinary tract symptoms; R31.9 Hematuria, unspecified; I95.2 Hypotension due to drugs; B95.2 Enterococcus as the cause of diseases classified elsewhere; Z16.21 Resistance to vancomycin; I12.9 Hypertensive chronic kidney disease with stage 1 through stage 4 chronic kidney disease, or unspecified chronic kidney disease; B96.20 Unspecified Escherichia coli [E. coli] as the cause of diseases classified elsewhere; I25.10 Atherosclerotic heart disease of native coronary artery without angina pectoris; Z60.2 Problems related to living alone; K21.9 Gastro-esophageal reflux disease without esophagitis; N18.9 Chronic kidney disease, unspecified; F17.210 Nicotine dependence, cigarettes, uncomplicated; Z93.3 Colostomy status; I25.2 Old myocardial infarction; Z95.5 Presence of coronary angioplasty implant and graft; Z88.2 Allergy status to sulfonamides; Z88.8 Allergy status to other drugs, medicaments and biological substances; Z79.02 Long term (current) use of antithrombotics/antiplatelets; Z79.899 Other long term (current) drug therapy; Z80.0 Family history of malignant neoplasm of digestive organs; Z68.25 Body mass index [BMI] 25.0-25.9, adult
CPT/HCPCS: 36415; 80048; 80053; 80320; 81001; 83605; 83690; 83735; 84145; 84484; 85025; 85610; 85730; 87040; 87070; 87077; 87088; 87186; 93005; 97116; 97161; 97530; 99285; A4315; A4421; A6212; A6224; A6253; A6257; A6449; A7000; J0131; J0330; J0692; J1100; J1170; J2001; J2020; J2185; J2270; J2405; J2543; J2704; J2710; J3010; J3490; J7030; J7120